=== PATIENT | female | born 1935 | race African-American/Black ===

== ENCOUNTER 2019-03-01 20:36 | Emergency (ER) | payer OTHER, BC ==
[2019-03-01 20:53] VITALS: BMI 10.3
--- NOTE | 2019-03-01 21:47 | PDOC ---
*Physical Exam - Vital Signs Last Vital Signs Temp Pulse Resp BP Pulse Ox 97.9 F 59 L 16 169/74 99 03/01/19 20:50 03/01/19 20:50 03/01/19 20:50 03/01/19 20:50 03/01/19 20:50 - Physical Exam Comments: 03/01/19 21:45 ED Treatment Course - RADIOLOGY Radiology Studies Ordered: Category Date Time Status CERVICAL SPINE CT W/O CONTR [CT] Stat CT Scan 03/01/19 21:[address] WITHOUT CONTRAST [CT] Stat CT Scan 03/01/19 21:[address] WITHOUT CONTRAST [CT] Stat CT Scan 03/01/19 21:39 Ordered Discharge - Follow up/Referral Referrals: Manolo Ulloa [Primary Care Provider] - - Patient Discharge Instructions - Post Discharge Activity
--- NOTE | 2019-03-01 21:55 | PDOC ---
Documentation entered by Ray Borden SCRIBE, acting as scribe for Ghazala Ceja DO. Ghazala Ceja DO: This documentation has been prepared by the Michi zuniga Daniel, SCRIBE, under my direction and personally reviewed by me in its entirety. I confirm that the documentation accurately reflects all work, treatment, procedures, and medical decision making performed by me. Attending Attestation - Resident Resident Name: Huber Hairston - ED Attending Attestation I have performed the following: I have examined & evaluated the patient, The case was reviewed & discussed with the resident, I agree w/resident's findings & plan, Exceptions are as noted - HPI HPI: 03/01/19 21:31 The patient is an 83 year old diabetes with a past medical history of diabetes here today for evaluation of chest and back pain s/p fall. The patient reports that she was walking into her kitchen when she tripped over a shirt and fell. She is not sure which way she fell but states that she hit her head and denies any loss of consciousness. She states that she was unable to get up and had to call her neighbor to help her. She states that since the fall she has had 8/10 substernal chest pain that is worse with deep breaths and 8/10 thoracic back pain. Patient denies headache, lightheadedness. Denies fever, chills. Denies shortness of breath. Denies nausea, vomiting, diarrhea, abdominal pain. Denies neurologic symptoms. Allergies: NKA Social history: Denies tobacco, alcohol, and illicit drug use. PCP: Tomas Flynn - Physicial Exam PE: 03/01/19 21:45 Constitutional: Awake, alert, oriented. No acute distress. No external signs of trauma. Head: Normocephalic. Atraumatic Eyes: PERRL. EOMI. Conjunctivae are not pale. ENT: Mucous membranes are moist and intact. Posterior pharynx without exudates or erythema. Uvula midline. Neck: Supple. Full ROM. No lymphadenopathy. Cardiovascular: Regular rate. Regular rhythm. S1, S2 regular. Distal pulses are 2+ and symmetric. Pulmonary/Chest: +distal sternal tenderness. +lower anterior chest wall tenderness. No evidence of respiratory distress. Clear to auscultation bilaterally No wheezing, rales or rhonchi. Abdominal: Soft and non-distended. There is no tenderness. No rebound, guarding or rigidity. No organomegaly. No palpable masses. Good bowel sounds. Back: +thoracic spinal tenderness with no step offs or deformity. No CVA tenderness. Musculoskeletal: No edema. No cyanosis. No clubbing. Full range of motion in all extremities. Nocalf tenderness. Radial/pedal pulses are intact and 2+ bilaterally Skin: Skin is warm and dry. No petechiae. No purpura. Neurological: Alert and oriented to person, place, and time. Cranial nerves II -XII are grossly intact. Normal speech. Strength is grossly symmetric. No sensory deficits. Psychiatric: Good eye contact. Normal interaction, affect and behavior. - Medical Decision Making 03/01/19 21:53 I, Dr. Ghazala Ceja, DO, attest that this document has been prepared under my direction and personally reviewed by me in its entirety. I further attest, that it accurately reflects all work, treatment, procedures and medical decision -making performed by me. a/p: 83yo female with mechanical fall tonight -pt with head injury, no loc -pt with lower neck pain and upper back pain and lower sternal ttp -unsure how she fell -will send labs, ct head/c spine/chest -pt denies wanting pain meds at this time -no abd ttp -pelvis stable, FROM of hips and LE -sensation intact UE and LE, muscle strength 5/5 UE and LE -neuro intact -will r/o fx -will monitor and reassess 03/01/19 23:51 labs reviewed and stable pt pending ct findings 03/02/19 00:26 pt without acute hemorrhage or fx on head ct pt without acute c spine fx 03/02/19 00:[address] Findings: Cervical spine demonstrates normal alignment. Degenerative changes noted. No acute cervical spine fracture or dislocation Small thyroid nodules. Moderate left and mild right mastoid effusions. Head CT FINDINGS: There is cerebral atrophy. Chronic microvascular ischemic changes are noted. No acute intracranial hemorrhage or acute infarction. The visualized aspect of the paranasal sinuses and mastoid air cells are remarkable for moderate left mastoid effusion. No acute fracture. Chest CT Findings: Atelectasis, scarring, and mild bronchiectasis in the lungs. No acute lung contusion, pleural effusion, or pneumothorax. No mediastinal hematoma. No acute fracture. 03/02/19 00:33 will give toradol for pain will ambulate 03/02/19 01:47 trop neg pending repeat trop resident to ambulate the patient 03/02/19 02:08 pt was able to ambulate with her cane in the ED 03/02/19 02:09 repeat trop neg 03/02/19 02:11 pt stable for dc to home Heart Score/ECG Review - ECG Intrepretation Comment:: 03/01/19 21:55 sinus adamaris at 50, nl axis, LVH, poor r wave progression, no acute st/t wave findings, abnl ekg
--- NOTE | 2019-03-01 22:00 | PDOC ---
History of Present Illness - General Chief Complaint: Injury Stated Complaint: FALL Time Seen by Provider: 03/01/19 20:46 History Source: Patient Exam Limitations: No Limitations - History of Present Illness Initial Comments: 03/01/19 21:48 This is an 83 year old female with PMH significant for DM (metformin DCed, PCP aware). She presented to the ER with complaints of chest and back pain that began after she tripped over a shirt and fell down in her apartment approximately 2 hours ago. She does not remember which direction she fell in, or how she landed, but she remembers hitting her head and states that it sounded like "a coconut hitting the floor". She did not lose consciousness, and attempts to pull herself up proved futile. She called her friends who live in the same apartment building to help her, and they responded within 10 minutes. The chest pain is substernal, sudden on onset, 8/10 in intensity, constant but gradually decreasing in nature, non-radiating, aggravated by deep breaths and by leaning forward, with no alleviating factors. The back pain is located in the thoracic vertebrae, sudden on onset, 8/10 in intensity, constant but gradually decreasing in nature, non-radiating, with no recognizable aggravating or alleviating factors. She has not taken any medication for the pain, and denies any associated nausea , vomiting, mental status changes, visual changes, numbness or tingling, or fever. Past History - Past Medical History Allergies/Adverse Reactions: Allergies Allergy/AdvReac Type Severity Reaction Status Date / Time No Known Allergies Allergy Verified 03/01/19 20:45 Home Medications: Ambulatory Orders Brinzolamide [Azopt] 15 ml OP DAILY 03/01/19 - Psycho Social/Smoking Cessation Hx Smoking History: Never smoked Have you smoked in the past 12 months: No Information on smoking cessation initiated: No Hx Alcohol Use: No Drug/Substance Use Hx: No Review of Systems - Review of Systems Constitutional: No: Symptoms Reported, See HPI, Chills, Diaphoresis, Fever, Loss of Appetite, Malaise, Night Sweats, Weakness, Weight Stable, Unintentional Wgt. Loss, Unexplained wgt Loss, Other HEENTM: No: Symptoms Reported, See HPI, Eye Pain, Blurred Vision, Tearing, Recent change in vision, Double Vision, Cataracts, Ear Pain, Ocular Prothesis, Ear Discharge, Nose Pain, Nose Congestion, Tinnitus, Nose Bleeding, Hearing Loss , Throat Pain, Throat Swelling, Mouth Pain, Dental Problems, Difficulty Swallowing, Mouth Swelling, Other Respiratory: No: Symptoms reported, See HPI, Cough, Orthopnea, Shortness of Breath, SOB with Exertion, SOB at Rest, Stridor, Wheezing, Productive cough, Hemoptysis, Other Cardiac (ROS): Yes: Chest Pain. No: Symptoms Reported, See HPI, Edema, Irregular Heart Rate, Lightheadedness, Palpitations, Syncope, Chest Tightness, Other ABD/GI: No: Symptoms Reported, See HPI, Abdominal Distended, Abd. Pain w/ defecation, Blood Streaked Bowels, Constipated, Diarrhea, Difficulty Swallowing , Nausea, Poor Appetite, Poor Fluid Intake, Rectal Bleeding, Vomiting, Indigestion, Abdominal cramping, Tarry Stools, Other : No: Symptoms Reported, See HPI, Burning, Dysuria, Discharge, Frequency, Flank Pain, Hematuria, Incontinence, Pain, Urgency, Testicular Mass, Testicular Swelling, Lesions, Testicular Pain, Other Musculoskeletal: Yes: Back Pain. No: Symptoms Reported, See HPI, Gout, Joint Pain, Joint Swelling, Muscle Pain, Muscle Weakness, Neck Pain, Joint Stiffness, Other Integumentary: No: Symptoms Reported, See HPI, Bruising, Change in Color, Change in Hair/Nails, Dryness, Erythema, Flushing, Lesions, Lumps, Pallor, Pruritus, Rash, Sweating, Other Neurological: No: Symptoms reported, See HPI, Headache, Numbness, Paresthesia, Pre-Existing Deficit, Seizure, Tingling, Tremors, Weakness, Unsteady Gait, Ataxia, Dizziness, Other Psychiatric: No: Anxiety, Depression, Frequent Crying, Stressors, Sleep Pattern Change, Emotional Problems, Mood Swings, Change in Appetite, Other Endocrine: No: Symptoms Reported, See HPI, Excessive Sweating, Flushing, Intolerance to Cold, Intolerance to Heat, Increased Hunger, Increased Thirst, Increased Urine, Unexplained Weight Gain, Unexplained Weight Loss, Change in Weight, Other Hematologic/Lymphatic: No: Symptoms Reported, See HPI, Anemia, Blood Clots, Easy Bleeding, Easy Bruising, Bleeding Diathesis, Lymph Node Abnormalities, Swollen Glands, Other *Physical Exam - Vital Signs Last Vital Signs Temp Pulse Resp BP Pulse Ox 97.9 F 59 L 16 169/74 99 03/01/19 20:50 03/01/19 20:50 03/01/19 20:50 03/01/19 20:50 03/01/19 20:50 - Physical Exam General Appearance: Yes: Appropriately Dressed HEENT: positive: Normal ENT Inspection, Normal Voice, Symmetrical, TMs Normal, Pharynx Normal Neck: positive: Trachea midline Respiratory/Chest: positive: Lungs Clear, Normal Breath Sounds Cardiovascular: positive: Regular Rhythm, Regular Rate Heart Score/ECG Review - Electrocardiogram EKG: Normal - Age Age: >/= 65 - Risk Factors Risk Factors Heart Score: Yes Hx Diabetes - ECG Intrepretation Rhythm: Regular Rhythm ED Treatment Course - LABORATORY CBC & Chemistry Diagram: 03/01/19 22:22 03/01/19 22:22 - RADIOLOGY Radiology Studies Ordered: Category Date Time Status CERVICAL SPINE CT W/O CONTR [CT] Stat CT Scan 03/01/19 21:[address] WITHOUT CONTRAST [CT] Stat CT Scan 03/01/19 21:[address] WITHOUT CONTRAST [CT] Stat CT Scan 03/01/19 21:39 Ordered Medical Decision Making - Medical Decision Making 03/01/19 22:07 - CBC, CMP - UA - EKG - CT Head, C-spine, Chest - Patient refused pain medication 03/02/19 01:07 - Imaging negative 03/02/19 02:07 - Trops negative x2 - Toradol goven for pain 03/02/19 05:17 - Patient discharged Discharge - Discharge Information Problems reviewed: Yes Clinical Impression/Diagnosis: Fall Condition: Guarded - Admission No - Follow up/Referral Referrals: Manolo Ulloa [Primary Care Provider] - - Patient Discharge Instructions Additional Instructions: You presented to the ER with chest and back pain after a fall. We did scans of your head (CT), chest, and back (X Rays), as well as blood work. You also received some medicine for your pain. We did not find any abnormalities requiring urgent treatment, so you are now being discharged. Follow up: Please make an appointment to see your primary care physician within 1 week Medications: You may take Tylenol 650 mg by mouth up to 4 times a day for pain Additional information: Please return to the ER if your symptoms persist or worsen. - Post Discharge Activity
[2019-03-01 22:35] LABS: BASO % 0.5 % (0-2.0); EOS % 0.9 % (0-4.5); HEMATOCRIT 41.3 % (32.4-45.2); HEMOGLOBIN 13.6 GM/dL (10.7-15.3); LYMPH % 21.7 % (8-40); MCH 29.2 pg (25.7-33.7); MEAN CELL VOLUME 88.3 fl (80-96); MONO % 5.8 % (3.8-10.2); NEUT % 71.1 % (42.8-82.8); RBC 4.67 M/mm3 (3.60-5.2); RDW 14.5 % (11.6-15.6); WHITE BLOOD COUNT 7.4 K/mm3 (4.0-10.0)
[2019-03-01 22:37] LABS: PH,URINE 8.5 (5.0-8.0); URINE APPEARANCE CLEAR; URINE BILIRUBIN NEGATIVE (NEGATIVE); URINE COLOR YELLOW; URINE GLUCOSE (UA) NEGATIVE (NEGATIVE); URINE KETONE NEGATIVE (NEGATIVE); URINE LEUK ESTERASE NEGATIVE (NEGATIVE); URINE NITRITE NEGATIVE (NEGATIVE); URINE PROTEIN NEGATIVE (NEGATIVE); URINE UROBILINOGEN 0.2 mg/dL (0.2-1.0)
[2019-03-01 23:07] LABS: ALBUMIN 4.2 g/dl (3.4-5.0); ALK PHOS 111 U/L (45-117); BILIRUBIN,TOTAL 0.5 mg/dL (0.2-1); BLOOD UREA NITROGEN 13.2 mg/dL (7-18); CALCIUM 9.2 mg/dL (8.5-10.1); CHLORIDE 104 mmol/L (98-107); CO2 29 mmol/L (21-32); GLUCOSE,RANDOM 106 mg/dL (74-106); MEAN PLT VOLUME 11.2 fl (7.5-11.1); PLATELET COUNT 180 K/MM3 (134-434); SGPT/ALT 29 U/L (13-61); SODIUM 140 mmol/L (136-145); TOT PROT 8.2 g/dl (6.4-8.2)
[2019-03-01 23:08] LABS: ANION GAP 7 MMOL/L (8-16); POTASSIUM 4.2 mmol/L (3.5-5.1); SGOT/AST 36 U/L (15-37)
[2019-03-02] MEDS ORDERED: KETOROLAC TROMETHAMINE 10 MG TABLET PO ONE (00:34)
[2019-03-02] MEDS ORDERED: ACETAMINOPHEN 1000 MG/100 ML VIAL (NON FORMULARY) IVPB ONE (00:38)
[2019-03-02] MEDS ORDERED: ACETAMINOPHEN INJECTION 100 ML IVPB ONE (00:50)
[2019-03-02 08:36] VITALS: BP 126/69; PULSE 52; TEMP 98.7
--- NOTE | 2019-03-02 12:14 | EKG ---
Test Reason : Blood Pressure : / mmHG Vent. Rate : 050 BPM Atrial Rate : 050 BPM P-R Int : 158 ms QRS Dur : 086 ms QT Int : 438 ms P-R-T Axes : 059 020 053 degrees QTc Int : 399 ms SINUS BRADYCARDIA POSSIBLE LEFT ATRIAL ENLARGEMENT LEFT VENTRICULAR HYPERTROPHY NO PREVIOUS ECGS AVAILABLE Confirmed by ALEJANDRO MILTON MD ([id number]) on 03/02/2019 12:14:37 PM Referred By: Confirmed By:ALEJANDRO MILTON MD
== END 2019-03-02 08:36 | disposition home or self-care (01) ==
LOC: JER 20:36
PROC: 3E033NZ Introduction of Analgesics, Hypnotics, Sedatives into Peripheral Vein, Percutaneous Approach (ICD-10-PCS; principal; 2019-03-01)
DX: S09.8XXA Other specified injuries of head, initial encounter (principal); R07.89 Other chest pain; M54.6 Pain in thoracic spine; W18.09XA Striking against other object with subsequent fall, initial encounter; Y93.89 Activity, other specified; Y92.038 Other place in apartment as the place of occurrence of the external cause; Y99.8 Other external cause status; E11.9 Type 2 diabetes mellitus without complications
CPT/HCPCS: 36415; 70450-TC; 71250-TC; 72125-TC; 80053; 81003; 82550; 82553; 84484; 85025; 93005; 93010; 99284-25; J0131

== ENCOUNTER 2019-04-15 23:34 | Inpatient (IN) | payer OTHER, BC ==
--- NOTE | 2019-04-15 23:46 | PDOC ---
History of Present Illness - General Chief Complaint: Injury Stated Complaint: FALL Time Seen by Provider: 04/15/19 23:45 History Source: Patient Exam Limitations: No Limitations - History of Present Illness Initial Comments: 83 year old female with PMH DM, osteoporosis presented to ED for right hip pain s/p fall tonight. Pt reported she believes that her cane did not make traction with the ground, causing her to fall onto her right hip. Pt denied head injury/ vomiting/LOC, neck pain, back pain, abdominal pain, chest pain, shortness of breath, palpitations. She denied prodromal symptoms. Pt reported she took Tylenol right after the fall. PSH: bilateral knee replacement Allergies: ASA ROS General: denied fever, chills, generalized weakness. HEENT: denied sore throat, rhinorrhea, ear pain. Cardiovascular: denied chest pain, palpitations, syncope, diaphoresis. Respiratory: denied shortness of breath, cough, sputum production, hemoptysis. Gastrointestinal: denied abdominal pain, nausea, vomiting, diarrhea, constipation, blood in stool. Genitourinary: denied dysuria, increased urinary frequency, hematuria, urinary incontinence, flank pain. Back: denied back pain. Musculoskeletal: admitted to right hip pain. Neurological: denied headache, dizziness, numbness, tingling, weakness. Integumentary: denied rash, laceration, abrasion. Hematologic/Lymphatic: denied bruising or bleeding. PE Constitutional: Well-nourished, Well-developed, appearing stated age. HEENT: head is normocephalic, atraumatic. EOMI. PERRLA. no scalp hematoma. no racoon eyes. no facial bone tenderness to palpation. Neck: supple. Full ROM. no midline c-spine tenderness to palpation. no step offs. Cardiovascular: regular heart rhythm. no murmurs. no pericardial friction rub. Respiratory: clear to auscultation bilaterally. no crackles, rhonchi or wheezing. no stridor. Gastrointestinal: soft, nontender. normal bowel sounds. no rebound, guarding, masses. Extremities: peripheral pulses intact. RLE externally rotated and shortened. Hips: tenderness to right hip. no tenderness to left hip. Neurological: CN 2-12 grossly intact. moves all four extremities. Psych: awake, alert, oriented x3. follows commands. answers questions appropriately. Past History - Past Medical History Allergies/Adverse Reactions: Allergies Allergy/AdvReac Type Severity Reaction Status Date / Time No Known Allergies Allergy Verified 04/15/19 23:48 Home Medications: Ambulatory Orders Brinzolamide [Azopt] 15 ml OP DAILY 03/01/19 - Psycho Social/Smoking Cessation Hx Smoking History: Never smoked Have you smoked in the past 12 months: No Hx Alcohol Use: No Drug/Substance Use Hx: No ED Treatment Course - LABORATORY CBC & Chemistry Diagram: 04/16/19 05:30 04/16/19 05:30 - RADIOLOGY Radiograph Interpretation: CT head/cervical spine report: Name: PLACIDO VIZCAINO DEPARTMENT OF RADIOLOGY Phys: Liz Grace RESIDENT : 1935 Age: 83 Sex: F [facility] Acct: [id number] Loc: J7 [address] [facility] Exam Date: Status: [place] [address] Unit Number: [id number] EXAM#: TYPE/EXAM: RESULT: [id number] CT/ CERVICAL SPINE CT W/O CONTR [id number] CT/HEAD CT WITHOUT CONTRAST Status post fall. CT scan of the head without intravenous contrast. There is moderate volume loss, ventricular dilatation and periventricular chronic microvascular ischemic disease changes. No mass lesion, gross acute infarct or intracranial hemorrhage are identified. There is no shift of the midline structures. Mild deviation of the nasal septum towards the left. Calcification of the cavernous carotid arteries are present. Cataract sutures in the left orbit. The mastoid air cells are partially opacified, left more the right. The calvarium is intact IMPRESSION: Moderate atrophy and periventricular chronic microvascular ischemic disease changes without CT evidence of acute intracranial pathology A preliminary report was forwarded by the [facility] service, [facility] CT scan of the cervical spine without intravenous contrast Coronal and sagittal reconstruction images were obtained. There is very minimal anterolisthesis of C6 over C7, likely degenerative. Moderate degenerative disc disease at C4-C5 and C6-C7 level Right uncovertebral hypertrophy at C4-C5 level moderately narrowing foramen. No gross fracture, subluxation or prevertebral soft tissue swelling is seen. Visualized portion of the airway appears unremarkable. No gross enlarged lymph nodes are identified. Lung windows at the thoracic inlet appear unremarkable. Notes made of a couple of small hypodense nodules in the right thyroid lobe measuring up to 6 mm. Please correlate with thyroid ultrasound Note is again made of bilateral mastoid effusion, left more than right. IMPRESSION: Very minimal anterolisthesis of C6 over C7, likely degenerative. Otherwise, the alignment is satisfactory without gross evidence of a fracture or subluxation. No jumped facets are identified. Right uncovertebral hypertrophy moderately narrowing the foramen at C4-C5 level. A preliminary report was forwarded by the [facility] service, [facility] Reported By: Jose Vazquez MD 04/16/19 1101 CXR report: Name: PLACIDO VIZCAINO DEPARTMENT OF RADIOLOGY Phys: Liz Grace RESIDENT : 1935 Age: 83 Sex: F [facility] Acct: [id number] Loc: [address] Exam Date: 04/16/19 Status: [place] [address] Unit Number: [id number] EXAM#: TYPE/EXAM: RESULT: [id number] RAD/CHEST - PA Chest: Fall Single AP view of the chest reveals a large heart, and folded aorta, scoliosis with convexity to the left, slightly coarse lung changes but no sign of infiltrate failure or pneumothorax. The angles are sharp. The soft tissues are intact. There are no gross rib fractures. Since 08/11/2006 there is a more prominent mediastinum increased lung markings. Correlation recommended. Reported By: Patel Suarez MD 04/16/19 0633 R Knee XR report: Name: PLACIDO VIZCAINO DEPARTMENT OF RADIOLOGY Phys: Liz Grace RESIDENT : 1935 Age: 83 Sex: F [facility] Acct : [id number] Loc: [address] Exam Date: 04/16/19 Status: [place] [address] Unit Number: [id number] EXAM#: TYPE/EXAM: RESULT: [id number] RAD/KNEE 2 POS-RIGHT Right knee : Fall. Pain. 2 views of the right knee reveal an intact knee replacement with no sign of loosening, fracture or subluxation. Other imaging does show a proximal right femoral intertrochanteric fracture with varus deformity. Correlation recommended. Reported By: Patel Suarez MD 04/16/19702 R Femur XR report: Name: PLACIDO VIZCAINO DEPARTMENT OF RADIOLOGY Phys: OlgaLiz RESIDENT : 1935 Age: 83 Sex: F [facility] Acct: [id number] Loc: [address] Exam Date: 04/16/19 Status: [place] [address] Unit Number: [id number] ACCESSION # : [id number] EXAM#: TYPE/EXAM: RESULT: [id number] RAD/FEMUR-RIGHT Right femur: Fall. Pain. 4 views of the right femur reveal an acute right femoral intertrochanteric fracture with varus deformity. The femoral head is not dislocated. There is an intact right knee replacement. Correlation recommended. Reported By: Patel Suarez MD 04/16/19702 R hip/pelvis XR report: Name: PLACIDO VIZCAINO DEPARTMENT OF RADIOLOGY Phys: Liz Grace RESIDENT : 1935 Age: 83 Sex: F [facility] Acct: [id number] Loc: [address] Exam Date: 04/16/19 Status: [place] [address] Unit Number: [id number] ACCESSION # : [id number] EXAM#: TYPE/EXAM: RESULT: [id number] RAD/HIP PELVIS-RIGHT Right hip and pelvis: Fall. Pain. The true pelvis film has not been submitted. Images of the right femur and hip reveal an acute right femoral intertrochanteric fracture with varus deformity and no sign of the femoral head dislocation. A knee replacement is noted and this is intact. Correlation recommended. Reported By: Patel Suarez MD 04/16/19 0704 Medical Decision Making - Medical Decision Making 83 year old male with above PMH presented to ED for right hip pain s/p fall from standing today. Ortho: [facility] ([facility]) Initial Vital Signs Temp Pulse Resp BP Pulse Ox 97.4 F L 54 L 18 145/98 100 04/15/19 23:35 04/15/19 23:35 04/15/19 23:35 04/15/19 23:35 04/15/19 23:35 Afebrile. Bradycardia. No tachypnea. Mild hypertension. No hypoxia on room air. Labs ordered: CBC, CMP, PT/PTT/INR, UA/UC, T&S Imaging ordered: CT head noncontrast, CT cervical spine noncontrast Medications ordered: Morphine 2 mg IV once, Zofran 4 mg IV once, normal saline bolus 1000 cc once EKG performed at 2349: rate 68, regular rhythm, normal axis, normal intervals, nonspecific ST changes. 04/16/19 02:06 XR shows intertrochanteric fracture. Bucio ordered. CBC WBC 10.5 K/mm3 (4.0-10.0) H 04/16/19 00:55 RBC 4.59 M/mm3 (3.60-5.2) 04/16/19 00:55 Hgb 13.4 GM/dL (10.7-15.3) 04/16/19 00:55 Hct 40.8 % (32.4-45.2) 04/16/19 00:55 MCV 88.9 fl (80-96) 04/16/19 00:55 MCH 29.3 pg (25.7-33.7) 04/16/19 00:55 MCHC 32.9 g/dl (32.0-36.0) 04/16/19 00:55 RDW 14.9 % (11.6-15.6) 04/16/19 00:55 Plt Count 208 K/MM3 (134-434) 04/16/19 00:55 MPV 11.5 fl (7.5-11.1) H 04/16/19 00:55 Absolute Neuts (auto) 8.7 K/mm3 (1.5-8.0) H 04/16/19 00:55 Neutrophils % 83.0 % (42.8-82.8) H 04/16/19 00:55 Lymphocytes % 12.9 % (8-40) D 04/16/19 00:55 Monocytes % 3.5 % (3.8-10.2) L 04/16/19 00:55 Eosinophils % 0.3 % (0-4.5) 04/16/19 00:55 Basophils % 0.3 % (0-2.0) 04/16/19 00:55 Nucleated RBC % 0 % (0-0) 04/16/19 00:55 CMP Sodium 139 mmol/L (136-145) 04/16/19 00:55 Potassium 4.1 mmol/L (3.5-5.1) 04/16/19 00:55 Chloride 107 mmol/L (98-107) 04/16/19 00:55 Carbon Dioxide 25 mmol/L (21-32) 04/16/19 00:55 Anion Gap 7 MMOL/L (8-16) L 04/16/19 00:55 BUN 17.7 mg/dL (7-18) 04/16/19 00:55 Creatinine 1.1 mg/dL (0.55-1.3) 04/16/19 00:55 Est GFR (CKD-EPI)AfAm 53.39 04/16/19 00:55 Est GFR (CKD-EPI)NonAf 46.07 04/16/19 00:55 Random Glucose 124 mg/dL (74-106) H 04/16/19 00:55 Calcium 9.1 mg/dL (8.5-10.1) 04/16/19 00:55 Magnesium 2.3 mg/dL (1.8-2.4) 04/16/19 00:55 Total Bilirubin 0.5 mg/dL (0.2-1) 04/16/19 00:55 AST 28 U/L (15-37) 04/16/19 00:55 ALT 21 U/L (13-61) 04/16/19 00:55 Alkaline Phosphatase 119 U/L (45-117) H 04/16/19 00:55 Total Protein 8.4 g/dl (6.4-8.2) H 04/16/19 00:55 Albumin 4.2 g/dl (3.4-5.0) 04/16/19 00:55 INR, PTT INR 1.05 (0.83-1.09) 04/16/19 00:55 Pt to be admitted. Ortho consult placed. No emergent need to call right now, ortho can be called in the AM. 04/16/19 04:27 CT head report: Referring Physician: OLGA LARES Patient Name: PLACIDO VIZCAINO THIS IS A PRELIMINARY REPORT FROM [facility] DATE OF SERVICE: 2019-04-16 02:22:29 IMAGES: [id number] EXAM: HEAD CT WITHOUT CONTRAST HISTORY: Fall. COMPARISON: Report only of CT head of 03/01/2019. Images not provided. FINDINGS: Age-related intracranial volume loss. No midline shift. Chronic micro angiopathic ischemic changes in the white matter. No acute intracranial hemorrhage or infarction. No abnormal acute extra-axial fluid collections. Intracranial atherosclerosis. Bilateral lens implants. Intact osseous calvarium. Fluid in bilateral mastoids, left greater than right. Clear middle ear cavities. Mild mucosal thickening in left maxillary sinus. IMPRESSION: No acute traumatic intracranial or osseous abnormality. Other findings as above. One or more of the following dose reduction techniques were used: automated exposure control, adjustment of the mA and/or kV according to patient size, use of iterative reconstructive technique. THIS DOCUMENT HAS BEEN ELECTRONICALLY SIGNED Harman Wilder MD 04/16/2019 04:[address] cervical spine report: Referring Physician: OLGA LARES Patient Name: PLACIDO VIZCAINO THIS IS A PRELIMINARY REPORT FROM [facility] DATE OF SERVICE: 2019-04-16 02:18:59 IMAGES: [id number] EXAM: CERVICAL SPINE CT W/O CONTR HISTORY: Fall. COMPARISON: Report only of CT cervical spine of 03/01/2019. FINDINGS: Fluid in bilateral mastoids, left greater than right. Clear middle ear cavities. Slight anterolisthesis of C6 over C7. No definite acute fractures or dislocations. Multilevel degenerative changes. Evaluation of intraspinal contents limited on CT scan. Prevertebral soft tissues within normal limits. Patent airway. Hypodense nodules in both lobes of the thyroid gland with calcifications noted in the right lobe. Clear lung apices. IMPRESSION: No acute traumatic osseous abnormality. Other findings as noted above. One or more of the following dose reduction techniques were used: automated exposure control, adjustment of the mA and/or kV according to patient size, use of iterative reconstructive technique. THIS DOCUMENT HAS BEEN ELECTRONICALLY SIGNED Harman Wilder MD 04/16/2019 04:18 EST 04/16/19 07:07 Dr. Lobato aware. Discharge - Discharge Information Problems reviewed: Yes Clinical Impression/Diagnosis: Hip fracture Condition: Stable - Admission Yes - Follow up/Referral - Patient Discharge Instructions - Post Discharge Activity
[2019-04-15] MEDS ORDERED: ACETAMINOPHEN 1000 MG/100 ML VIAL (NON FORMULARY) IVPB ONE (23:56)
[2019-04-16] MEDS ORDERED: ONDANSETRON 4 MG/2 ML VIAL IVPUSH ONE (00:09)
[2019-04-16] MEDS ORDERED: morphine CARPU-JECT 4 MG/1 ML DISP.SYRIN IVPUSH ONE (00:09)
[2019-04-16] MEDS ORDERED: SODIUM CHLORIDE 1,000 ML IV STA (00:13)
[2019-04-16] MEDS ORDERED: MORPHINE SULFATE 2 MG/ML VIAL ONE ×2 (00:24→04:06)
[2019-04-16] MEDS ORDERED: ONDANSETRON 4 MG/2 ML VIAL ONE (00:24)
--- NOTE | 2019-04-16 00:29 | PDOC ---
Documentation entered by Jocelyn Quezada SCRIBE, acting as scribe for Jacques Jeronimo MD. Jacques Jeronimo MD: This documentation has been prepared by the annieibeDamien Lincy, SCRIBE, under my direction and personally reviewed by me in its entirety. I confirm that the documentation accurately reflects all work, treatment, procedures, and medical decision making performed by me. Attending Attestation - Resident Resident Name: LeslyLiz - ED Attending Attestation I have performed the following: I have examined & evaluated the patient, The case was reviewed & discussed with the resident, I agree w/resident's findings & plan, Exceptions are as noted - HPI HPI: 04/16/19 06:26 83 years old with diabetes osteoporosis presents with right hip pain status post fall pain is moderate persistent constant no alleviating factors - Physicial Exam PE: 04/16/19 06:26 Vitals: Triage Vital signs reviewed General Appearance: No acute distress, well nourished well developed, Cardiac: Regular rate and rhythym, no murmurs, no rubs, no gallops, Lungs: Clear to auscultation bilateral, good air movement bilaterally, Abdomen: Soft, non distended, normal bowel sounds, non tender to palpation Extremities right hip rotated and shortened neurovascular intact distally skin: Warm and dry, no rashes or lesions, no rash, no petechiae Psych: Normal mood, normal affect - Medical Decision Making 04/16/19 06:27 Right intercurrent trochanteric hip fracture will call orthopedics Will admit to medicine for further management. Dr. Lobato orthopedics aware 04/16/19 07:28
[2019-04-16 01:14] LABS: BASO % 0.3 % (0-2.0); EOS % 0.3 % (0-4.5); HEMATOCRIT 40.8 % (32.4-45.2); HEMOGLOBIN 13.4 GM/dL (10.7-15.3); LYMPH % 12.9 % (8-40); MCH 29.3 pg (25.7-33.7); MCHC 32.9 g/dl (32.0-36.0); MEAN CELL VOLUME 88.9 fl (80-96); MEAN PLT VOLUME 11.5 fl (7.5-11.1); MONO % 3.5 % (3.8-10.2); PLATELET COUNT 208 K/MM3 (134-434); RBC 4.59 M/mm3 (3.60-5.2); RDW 14.9 % (11.6-15.6); WHITE BLOOD COUNT 10.5 K/mm3 (4.0-10.0)
[2019-04-16 01:36] LABS: INR 1.05 (0.83-1.09); PROTHROMBIN TIME (PATIENT) 12.4 SEC (9.7-13.0)
[2019-04-16 01:47] LABS: ALBUMIN 4.2 g/dl (3.4-5.0); BILIRUBIN,TOTAL 0.5 mg/dL (0.2-1); BLOOD UREA NITROGEN 17.7 mg/dL (7-18); CALCIUM 9.1 mg/dL (8.5-10.1); CREATININE 1.1 mg/dL (0.55-1.3); MAGNESIUM 2.3 mg/dL (1.8-2.4); POTASSIUM 4.1 mmol/L (3.5-5.1); TOT PROT 8.4 g/dl (6.4-8.2)
--- NOTE | 2019-04-16 02:36 | PN ---
Teaching Attending Note Name of Resident: Davida Alvarez ATTENDING PHYSICIAN STATEMENT I saw and evaluated the patient. I reviewed the resident's note and discussed the case with the resident. I agree with the resident's findings and plan as documented. SUBJECTIVE: 83-year-old woman with diabetes, osteoporosis presented status post fall last evening and subsequent right hip pain. Patient denied any head trauma, LOC, neck pain. X-ray performed of right hip and showed intratrochanteric fracture. OBJECTIVE: Last Vital Signs Temp Pulse Resp BP Pulse Ox 97.4 F L 54 L 18 145/98 100 04/15/19 23:35 04/15/19 23:35 04/15/19 23:35 04/15/19 23:35 04/15/19 23:35 GENERAL: Elderly, frail, not in acute distress HEENT: Normocephalic, atraumatic. PERRLA, EOMI. No conjunctival pallor. Sclera are non- icteric. Moist mucous membranes. Oropharynx is clear. NECK: Supple. Full ROM. No JVD. Carotid pulses 2+ and symmetric, without bruits. No thyromegaly. No lymphadenopathy. CARDIOVASCULAR: Regular rate and rhythm. No murmurs, rubs, or gallops. Distal pulses are 2+ and symmetric. PULMONARY: No evidence of respiratory distress. Lungs clear to auscultation bilaterally. No wheezing, rales or rhonchi. ABDOMINAL: Soft. Non-tender. Non-distended. No rebound or guarding. No organomegaly. Normoactive bowel sounds. MUSCULOSKELETAL Normal range of motion at all joints. No bony deformities or tenderness. No CVA tenderness. EXTREMITIES: DP pulses 2+ bilaterally feet and legs are warm to touch bilaterally sensation is intact SKIN: Warm and dry. Normal capillary refill. No rashes. No jaundice. PSYCHIATRIC: Cooperative. Good eye contact. Appropriate mood and affect. Abnormal Lab Results 04/16/19 04/16/19 00:55 00:55 WBC 10.5 H MPV 11.5 H Absolute Neuts (auto) 8.7 H Neutrophils % 83.0 H Monocytes % 3.5 L Anion Gap 7 L Random Glucose 124 H Alkaline Phosphatase 119 H Total Protein 8.4 H Imaging reviewed ASSESSMENT AND PLAN: 83-year-old woman with right intertrochanteric fracture status post fall. Appears to be vascularly and neurologically intact in right lower extremity Admit to [facility] N.p.o. Bedrest Fall precautions Right lower extremity immobilization Ortho consult Pain control with morphine IV Perioperative IV fluids PT, PTT, type and screen DVT prophylaxis with Heparin subcutaneously #Mild leukocytosisno evidence of infection at this time We will monitor CBC off of antibiotics
--- NOTE | 2019-04-16 03:33 | HP ---
CHIEF COMPLAINT: fall with inability to ambulate PCP:Dr Ulloa HISTORY OF PRESENT ILLNESS: 83 year old female with PMHx of DM, glaucoma, osteoporosis, and bilateral knee replacement in 2013, presenting to the ED due to a fall that occurred a few hours ago. Patient states she was walking outside to get to her sons car around 21:00 when her cane slipped off the surface, causing her to land on her right hip. Since then, she has been unable to ambulate. Patient denies hitting her head or any LOC. She reports right hip pain since then but denies any weakness or numbness, headache, chest pain, shortness of breath, dizziness, vertigo, or other problems at this time. She had a similar episode of a fall one month ago, on 03/01/19, where she slipped on a shirt and fell inside her home; patient states she came to the ED at the time, and had a negative CT head , and other imaging negative for fractures. Patient currently lives by herself, and uses a cane to ambulate around the house. Patient states she does not take her prescribed vitamin D or calcium tablets as they are hard to swallow. She does not take any steroids. Patient states she did have a DEXA scan a few years ago, but is unable to recall exactly when. ER course was notable for: (1) CBC with mild leukocytosis, CMP unremarkable, PT/INR/PTT 12.4/1.05/34.8 (2) EKG NSR with non specific ST changes (3) XRay of hip : intertrochanteric fracture Recent Travel: denies PAST MEDICAL HISTORY: as above PAST SURGICAL HISTORY: as above Family HX: none contributory Social History: Smoking:denies Alcohol: denies Drugs: denies Allergies No Known Allergies Allergy (Verified 04/15/19 23:48) HOME MEDICATIONS: Home Medications Medication Instructions Recorded Brinzolamide [Azopt] 15 ml OP DAILY 03/01/19 REVIEW OF SYSTEMS CONSTITUTIONAL: Absent: fever, chills, diaphoresis, generalized weakness, malaise, loss of appetite, weight change HEENT: Absent: rhinorrhea, nasal congestion, throat pain, throat swelling, difficulty swallowing, mouth swelling, ear pain, eye pain, visual changes CARDIOVASCULAR: Absent: chest pain, syncope, palpitations, irregular heart rate, lightheadedness , peripheral edema RESPIRATORY: Absent: cough, shortness of breath, dyspnea with exertion, orthopnea, wheezing, stridor, hemoptysis GASTROINTESTINAL: Absent: abdominal pain, abdominal distension, nausea, vomiting, diarrhea, constipation, melena, hematochezia GENITOURINARY: Absent: dysuria, frequency, urgency, hesitancy, hematuria, flank pain, genital pain MUSCULOSKELETAL: Absent: myalgia, arthralgia, joint swelling, back pain, neck pain SKIN: Absent: rash, itching, pallor HEMATOLOGIC/IMMUNOLOGIC: Absent: easy bleeding, easy bruising, lymphadenopathy, frequent infections ENDOCRINE: Absent: unexplained weight gain, unexplained weight loss, heat intolerance, cold intolerance NEUROLOGIC: Absent: headache, focal weakness or paresthesias, dizziness, unsteady gait, seizure, mental status changes, bladder or bowel incontinence PSYCHIATRIC: Absent: anxiety, depression, suicidal or homicidal ideation, hallucinations. PHYSICAL EXAMINATION Vital Signs - 24 hr 04/15/19 23:35 Temperature 97.4 F L Pulse Rate 54 L Respiratory 18 Rate Blood Pressure 145/98 O2 Sat by Pulse 100 Oximetry (%) GENERAL: Awake, alert, and fully oriented, in mild distress (pt recently received morphine) HEAD: Normal with no signs of trauma. EYES: Pupils equal, round and reactive to light, extraocular movements intact, sclera anicteric, conjunctiva clear. No lid lag. EARS, NOSE, THROAT: Ears normal, nares patent, oropharynx clear without exudates. Moist mucous membranes. NECK: Normal range of motion, supple without lymphadenopathy, JVD, or masses. LUNGS: Breath sounds equal, clear to auscultation bilaterally. No wheezes, and no crackles. No accessory muscle use. HEART: Regular rate and rhythm, normal S1 and S2 without murmur, rub or gallop. ABDOMEN: Soft, nontender, not distended, normoactive bowel sounds, no guarding, no rebound, no masses. No hepatomegaly or splenomegaly. MUSCULOSKELETAL: Normal range of motion in all joints except the right hip and the right knee. R hip tenderness ( prior to morphine). R leg shortened and externally rotated. UPPER EXTREMITIES: 2+ pulses, warm, well-perfused. No cyanosis. No clubbing. No peripheral edema. LOWER EXTREMITIES: 2+ pulses, warm, well-perfused. No calf tenderness. No peripheral edema. NEUROLOGICAL: Cranial nerves II-XII intact. Normal speech. Normal gait. PSYCHIATRIC: Cooperative. Good eye contact. Appropriate mood and affect. SKIN: Warm, dry, normal turgor, no rashes or lesions noted, normal capillary refill. Laboratory Results - last 24 hr 04/16/19 04/16/19 04/16/19 00:55 00:55 00:55 WBC 10.5 H RBC 4.59 Hgb 13.4 Hct 40.8 MCV 88.9 MCH 29.3 MCHC 32.9 RDW 14.9 Plt Count 208 MPV 11.5 H Absolute Neuts (auto) 8.7 H Neutrophils % 83.0 H Lymphocytes % 12.9 D Monocytes % 3.5 L Eosinophils % 0.3 Basophils % 0.3 Nucleated RBC % 0 PT with INR INR PTT (Actin FS) 34.8 Sodium 139 Potassium 4.1 Chloride 107 Carbon Dioxide 25 Anion Gap 7 L BUN 17.7 Creatinine 1.1 Est GFR (CKD-EPI)AfAm 53.39 Est GFR (CKD-EPI)NonAf 46.07 Random Glucose 124 H Calcium 9.1 Magnesium 2.3 Total Bilirubin 0.5 AST 28 ALT 21 Alkaline Phosphatase 119 H Total Protein 8.4 H Albumin 4.2 Blood Type Antibody Screen 04/16/19 04/16/19 04/16/19 00:55 00:55 00:55 WBC RBC Hgb Hct MCV MCH MCHC RDW Plt Count MPV Absolute Neuts (auto) Neutrophils % Lymphocytes % Monocytes % Eosinophils % Basophils % Nucleated RBC % PT with INR 12.40 INR 1.05 PTT (Actin FS) Sodium Potassium Chloride Carbon Dioxide Anion Gap BUN Creatinine Est GFR (CKD-EPI)AfAm Est GFR (CKD-EPI)NonAf Random Glucose Calcium Magnesium Total Bilirubin AST ALT Alkaline Phosphatase Total Protein Albumin Blood Type O POSITIVE O POSITIVE Antibody Screen Negative ASSESSMENT/PLAN: 83 year old female with PMHx of DM, glaucoma, osteoporosis, and bilateral knee replacement in 2013, presenting to the ED due to a fall that occurred a few hours ago. Admitted for fracture of the right hip Right hip fracture 2/2 fall and osteoporosis PE findings of shortened and externally rotated R leg Xray of the hip confirmed intertrochanteric fracture Ortho Dr Lobato consulted for surgery and fixation NPO bedrest fall precautions Morphine IV 2mg Q4h and tylenol 650 Q6h for pain control pre op labs ordered LOPES score 0.03% RCRI score 0 Mild Leukocytosis poss related to stress from fracture no abx for now as pt is asymptomatic monitor for now f/u repeat CBC Osteoporosis vit D and calcium once able to take PO DM BGM ISS Glaucoma resume eye drops FEN NPO NS @75 monitor lytes DVT hep subQ DISPO- med surge Visit type - Emergency Visit Emergency Visit: Yes ED Registration Date: 04/16/19 Care time: The patient presented to the Emergency Department on the above date and was hospitalized for further evaluation of their emergent condition. - New Patient This patient is new to me today: No - Critical Care Critical Care patient: No ATTENDING PHYSICIAN STATEMENT I saw and evaluated the patient. I reviewed the resident's note and discussed the case with the resident. I agree with the resident's findings and plan as documented. SUBJECTIVE: OBJECTIVE: ASSESSMENT AND PLAN:
[2019-04-16] MEDS ORDERED: ACETAMINOPHEN 325 MG TABLET (FP) PO PRN ×2 (03:45→18:58)
[2019-04-16] MEDS ORDERED: morphine CARPU-JECT 2 MG/1 ML DISP.SYRIN IVPUSH PRN (03:54)
[2019-04-16] MEDS: SODIUM CHLORIDE 1,000 ML IV SCH ×2 (03:57→15:33)
[2019-04-16 05:06] LABS: PH,URINE 7.5 (5.0-8.0); URINE APPEARANCE CLEAR; URINE BILIRUBIN NEGATIVE (NEGATIVE); URINE COLOR YELLOW; URINE GLUCOSE (UA) NEGATIVE (NEGATIVE); URINE KETONE 2+ (NEGATIVE); URINE LEUK ESTERASE NEGATIVE (NEGATIVE); URINE NITRITE NEGATIVE (NEGATIVE); URINE PROTEIN NEGATIVE (NEGATIVE)
[2019-04-16] MEDS ORDERED: MORPHINE SULFATE 2 MG/ML VIAL IVPUSH PRN (05:18)
[2019-04-16] MEDS ORDERED: HEPARIN NA (PORCINE) 5,000 UNITS/ML 1ML VIAL SQ SCH (06:00)
[2019-04-16 06:04] LABS: BASO % 0.9 % (0-2.0); EOS % 0.1 % (0-4.5); HEMATOCRIT 34.7 % (32.4-45.2); HEMOGLOBIN 11.7 GM/dL (10.7-15.3); LYMPH % 15.8 % (8-40); MCH 29.6 pg (25.7-33.7); MCHC 33.7 g/dl (32.0-36.0); MEAN CELL VOLUME 87.7 fl (80-96); MEAN PLT VOLUME 10.5 fl (7.5-11.1); MONO % 5.4 % (3.8-10.2); NEUT % 77.8 % (42.8-82.8); PLATELET COUNT 182 K/MM3 (134-434); RBC 3.96 M/mm3 (3.60-5.2); RDW 14.6 % (11.6-15.6); WHITE BLOOD COUNT 9.9 K/mm3 (4.0-10.0)
[2019-04-16 06:19] LABS: INR 1.1 (0.83-1.09)
[2019-04-16 06:22] LABS: ACTIVATED PTT 33.6 SECONDS (25.2-36.5)
[2019-04-16 06:30] LABS: ALBUMIN 3.4 g/dl (3.4-5.0); BILIRUBIN,TOTAL 0.5 mg/dL (0.2-1); BLOOD UREA NITROGEN 16.1 mg/dL (7-18); CALCIUM 8.6 mg/dL (8.5-10.1); CREATININE 0.9 mg/dL (0.55-1.3); MAGNESIUM 2.1 mg/dL (1.8-2.4); PHOSPHOROUS 3.6 mg/dL (2.5-4.9); POTASSIUM 3.5 mmol/L (3.5-5.1)
[2019-04-16] MEDS ORDERED: HEPARIN NA (PORCINE) 5,000 UNITS/ML 1ML VIAL ONE (06:35)
--- NOTE | 2019-04-16 09:05 | PN ---
Progress Note (short form) - Note Progress Note: Chart reviewed. Plan OR this afternoon. Full consult to follow.
--- NOTE | 2019-04-16 10:01 | EKG ---
Test Reason : Blood Pressure : / mmHG Vent. Rate : 068 BPM Atrial Rate : 068 BPM P-R Int : 152 ms QRS Dur : 070 ms QT Int : 398 ms P-R-T Axes : 060 020 054 degrees QTc Int : 423 ms NORMAL SINUS RHYTHM POSSIBLE LEFT ATRIAL ENLARGEMENT LEFT VENTRICULAR HYPERTROPHY ABNORMAL ECG WHEN COMPARED WITH ECG OF 01-MAR-2019 20:57, T WAVE VARIATION Confirmed by CELIA MURRY MD ([id number]) on 04/16/2019 10:01:32 AM Referred By: Confirmed By:CELIA MURRY MD
[2019-04-16] MEDS ORDERED: ONDANSETRON 4 MG/2 ML VIAL IVPUSH PRN ×2 (16:29→20:37)
[2019-04-16 16:30] VITALS: BMI 26.8
[2019-04-16] MEDS ORDERED: LACTATED RINGERS SOLUTION 1,000 ML IV SCH (16:30)
[2019-04-16] MEDS ORDERED: PROPOFOL 20 ML ONE ×2 (17:12)
[2019-04-16] MEDS ORDERED: ceFAZolin SODIUM 1 GM VIAL IVPB ONE (17:30)
--- NOTE | 2019-04-16 18:51 | HOSP ---
Subjective - Review of Symptoms General: Yes: Fatigue, Malaise Cardiovascular: Yes: Other Musculoskeletal: Yes: Joint Pain Physical Examination Vital Signs: Vital Signs Temperature 99.4 F 04/16/19 15:04 Pulse Rate 59 L 04/16/19 15:04 Respiratory Rate 18 04/16/19 15:04 Blood Pressure 144/75 04/16/19 15:04 O2 Sat by Pulse Oximetry (%) 97 04/16/19 09:00 Constitutional: Yes: Well Nourished, No Distress, Calm Eyes: Yes: WNL HENT: Yes: WNL Neck: Yes: WNL Cardiovascular: Yes: Regular Rate and Rhythm Respiratory: Yes: Regular, CTA Bilaterally Gastrointestinal: Yes: Normal Bowel Sounds Labs: CBC, BMP 04/16/19 05:30 04/16/19 05:30 Hospitalist Encounter Assessment: Patient is a 83-year-old woman with right intertrochanteric fracture status post fall, for OR today. stop heparin post op monitoring
[2019-04-16] MEDS ORDERED: ACETAMINOPHEN INJECTION 100 ML IVPB ONE (19:03)
[2019-04-16] MEDS ORDERED: ACETAMINOPHEN 1000 MG/100 ML VIAL (NON FORMULARY) IVPB ONE (19:30)
--- NOTE | 2019-04-16 19:34 | OP ---
DATE OF OPERATION: DATE OF DICTATION: 04/16/2019 PREOPERATIVE DIAGNOSIS: Right hip intertrochanteric fracture. POSTOPERATIVE DIAGNOSIS: Right hip intertrochanteric fracture. PROCEDURE: Right hip intramedullary nail. SURGEON: Rosas Lobato M.D. MEDICAL SALES ASSOCIATE: Lavern Solano, physician assistant spa manager, whose skillful assistance was necessary for the safe and timely performance of this procedure. Ms. Solano was able to provide limb positioning, retraction, assist in fracture reduction, as well as insertion of orthopedic fixation hardware. ANESTHESIA: General. POSTOPERATIVE CONDITION: Stable. COMPLICATIONS: None. BLOOD LOSS: 65 mL. IMPLANTS USED: Rashel gamma nail 125 degree with 95-mm proximal and 37.5-mm distal locking screws. INDICATION: This is a pleasant 83-year-old who suffered a trip and fall. She was found to have a displaced right intertrochanteric hip fracture. Treatment options were discussed including nonoperative care with prolonged bedrest and malunion versus operative care, which was highly recommended. Operative risks were reviewed in detail including bleeding, infection, neurovascular injury, need for further surgery, postoperative pain and stiffness, nonunion, malunion, hardware failure, or cutout. We discussed medical risks such as heart attack, stroke, DVT, PE and . I addressed the use of perioperative antibiotic and DVT prophylaxis. I addressed all the patient's questions and concerns. She voiced understanding, and elected to proceed. DESCRIPTION OF PROCEDURE: The patient was brought to the operating room where general anesthetic was administered. She was placed on the fracture table, careful to pad all bony prominences. The right lower extremity was then placed in a position of adduction, internal rotation, and traction. A preoperative fluoroscopy view demonstrated satisfactory reduction. Patient was now prepped and draped in the usual sterile fashion. A preoperative dose of antibiotics were given, and the usual timeout procedure was performed. An incision was now planned out proximal to the femur. This was carried down to skin and subcutaneous tissue. A guidewire was now inserted to the tip of the greater trochanter and advanced into the canal under guidance. The guidewire was now verified and positioned in 2 planes using fluoroscopy and is satisfactory. The guidewire was now overreamed down to the level of the lesser trochanter. The guidewire and reamer were now removed. A 125-degree nail was now chosen and inserted into the femoral canal. Now placement was confirmed fluoroscopically. A small incision was now made laterally, and a trocar was passed down to the level of the lateral femoral cortex. A guidewire was now advanced down the center of the femoral neck into the center of the femoral head. Guidewire placement was verified fluoroscopically in 2 planes. Guidewire was now measured, and a 95-mm screw was chosen. Reaming was then performed to a depth of 90 mm. The reamer was then removed. The screw was now inserted over the guidewire. Screw placement was verified fluoroscopically in 2 planes and was satisfactory. Set screw was now advanced all the way down. It was then backed off a quarter turn to allow compression. Set screw placement was verified by trying to back out the proximal lag screw. The proximal trocar was now removed. The distal trocar was now able to be inserted through the same incision as the previous one. This was also inserted down to the level of the cortex. The distal drill hole was now made, measured, and a 30.75-mm screw was chosen. The screw was now inserted and screw placement was verified fluoroscopically in 2 planes. The entire construct was now examined fluoroscopically. Both fracture reduction and hardware placement were satisfactory. The wounds were now copiously irrigated. The jig was removed. It should be noted the irrigation was done after the jig was removed. The deep tissue was approximated using 0 Vicryl. The subcutaneous tissue was approximated using 2-0 Vicryl. The skin was closed using 3-0 nylon. Sterile dressings were placed. The patient was extubated, transferred to recovery room in stable condition. Jewell [id number]
--- NOTE | 2019-04-16 19:43 | CONS ---
DATE OF CONSULTATION: DATE OF DICTATION: 04/16/2019 CHIEF COMPLAINT: Right hip pain. HISTORY OF PRESENT ILLNESS: This is an 83-year-old female who suffered a trip and fall in the wee hours of the morning around 9 or 10 o'clock at night when she slipped. She was then brought into the emergency department by ambulance. She was found to have a fracture. Orthopedic consultation was called. The patient does have history of diabetes, glaucoma, osteoporosis, bilateral knee replacement. She denies any loss of consciousness or dizziness. She has had 1 previous fall in the past month. She is a household and somewhat community ambulator utilizing a cane as well as a walker now. No other complaints at this time. PAST MEDICAL HISTORY: As above. PAST SURGICAL HISTORY: As above. FAMILY HISTORY: Noncontributory. SOCIAL HISTORY: Denies alcohol, tobacco, or drugs. ALLERGIES: No known drug allergies. MEDICATION: Medications include Azopt for her eyes. REVIEW OF SYSTEMS: Negative for fever, chills, nausea, vomiting, or night sweats. PHYSICAL EXAMINATION: General: This is an elderly female in no acute distress. She is seen lying in the hospital stretcher. She is alert and oriented x3. Extremities: Examination of the right lower extremity demonstrates shortening and external rotation. Her calves are soft and nontender. A distal neurovascular examination is intact to both lower extremities. Radiographs of the right hip are reviewed demonstrating displaced intertrochanteric hip fracture. Prior laboratory results are reviewed, and we reviewed a hemoglobin and hematocrit of 13 over 40, electrolytes demonstrate slight elevation in glucose. ASSESSMENT: Right intertrochanteric hip fracture. PLAN: I discussed today's findings with the patient. I advised that she has a displaced intertrochanteric hip fracture. I discussed that this is best treated operatively. We discussed the option of treating it nonsurgically with prolonged bedrest, leading to immobility, bed sores, pneumonia, DVT. Alternatively, we recommend operative care, which is carried out with intramedullary nail. I described the surgery in detail. I reviewed surgical risks including bleeding, infection, neurovascular injury, need for further surgery, postoperative pain and stiffness, nonunion, malunion, hardware failure and cutout. We discussed medical risks such as heart attack, stroke, DVT, PE and . I reviewed the postoperative rehabilitation protocol. We discussed the use of perioperative antibiotic and DVT prophylaxis. She voiced understanding, and elected to proceed. She was taken to the OR today. GHISLAINE STONER M.D. [id number]
[2019-04-16] MEDS ORDERED: FERROUS SO4 325 MG TABLET (FP) PO SCH (22:00)
[2019-04-16] MEDS ORDERED: CALCIUM 500MG/VIT-D 200 UNITS COMBO TABLET (FP) PO SCH (22:00)
[2019-04-16] MEDS: LACTATED RINGERS SOLUTION 1,000 ML IV SCH (22:02)
[2019-04-16] MEDS: CALCIUM 500MG/VIT-D 200 UNITS COMBO TABLET (FP) PO SCH (22:56)
[2019-04-17] MEDS ORDERED: DEXTROSE 5%-WATER - 50 ML IVPB ONE ×3 (01:57→16:46)
[2019-04-17] MEDS ORDERED: ceFAZolin SODIUM 1 GM VIAL ONE ×3 (01:57→16:46)
[2019-04-17] MEDS ORDERED: CEFAZOLIN 1 GM/D5W 1 GM/50 ML BAG IVPB SCH (02:00)
[2019-04-17] MEDS: CEFAZOLIN 1 GM in DEXTROSE 5%-WATER - 50 ML IVPB SCH ×3 (02:04→17:32)
[2019-04-17] MEDS: FERROUS SO4 325 MG TABLET (FP) PO SCH ×2 (07:45→17:31)
--- NOTE | 2019-04-17 08:26 | PN ---
Progress Note, Physician Chief Complaint: POD #1 Mild pain to operative hip History of Present Illness: 83 year old female with PMHx of DM, glaucoma, osteoporosis, and bilateral knee replacement in 2013, presenting to the ED due to a fall. Patient denies hitting her head or any LOC. She reports right hip pain since then but denies any weakness or numbness, headache, chest pain, shortness of breath, dizziness, vertigo, or other problems at this time. ER course was notable for: XRay of hip : intertrochanteric fracture - Current Medication List Current Medications: Active Medications Acetaminophen (Tylenol -) 650 mg PO Q6H PRN PRN Reason: FEVER Calcium Carbonate/Cholecalciferol (Os-Raudel 500+D -) 1 tab PO BID [facility] Last Admin: 04/16/19 22:56 Dose: 1 tab Enoxaparin Sodium (Lovenox -) 40 mg SQ DAILY [facility] Ferrous Sulfate (Feosol -) 325 mg PO BIDWM [facility] Last Admin: 04/17/19 07:45 Dose: 325 mg Cefazolin Sodium 1 gm/ (Dextrose) 50 mls @ 100 mls/hr IVPB Q8H-IV [facility] Stop: 04/18/19 01:59 Last Admin: 04/17/19 02:04 Dose: 100 mls/hr Lactated Ringer's (Lactated Ringers Solution) 1,000 mls @ 75 mls/hr IV ASDIR [facility] Last Admin: 04/16/19 22:02 Dose: 0 mls Ondansetron HCl (Zofran Injection) 4 mg IVPUSH Q6H PRN PRN Reason: NAUSEA AND/OR VOMITING - Objective Vital Signs: Vital Signs Temperature 98.8 F 04/17/19 06:00 Pulse Rate 72 04/17/19 06:00 Respiratory Rate 20 04/17/19 06:00 Blood Pressure 150/75 04/17/19 06:00 O2 Sat by Pulse Oximetry (%) 100 04/16/19 22:00 Constitutional: Yes: Well Nourished, No Distress, Calm Eyes: Yes: WNL, Conjunctiva Clear HENT: Yes: WNL, Atraumatic, Normocephalic Neck: Yes: WNL, Supple, Trachea Midline Cardiovascular: Yes: WNL, Regular Rate and Rhythm Respiratory: Yes: WNL, Regular, CTA Bilaterally Gastrointestinal: Yes: WNL, Normal Bowel Sounds ...Rectal Exam: Yes: Deferred Genitourinary: Yes: WNL Breast(s): Yes: WNL Musculoskeletal: Yes: Joint Stiffness Extremities: Yes: WNL Edema: No Peripheral Pulses WNL: Yes Peripheral Pulses: Left Radial: 2+, Right Radial: 2+, Left Doralis Pedis: 2+, Right Dorsalis Pedis: 2+, Left Femoral: 2+, Right Femoral: 2+ Integumentary: Yes: WNL Wound/Incision: Yes: Clean/Dry, Dressing Dry and Intact Neurological: Yes: WNL, Alert, Oriented ...Motor Strength: RLE (decreased duo) Labs: CBC, BMP 04/16/19 05:30 04/16/19 05:30 INR, PTT INR 1.10 (0.83-1.09) H 04/16/19 05:30 Problem List - Problems (1) Diabetes Assessment/Plan: diet controlled. BGM well controlled Code(s): E11.9 - TYPE 2 DIABETES MELLITUS WITHOUT COMPLICATIONS (2) Glaucoma Assessment/Plan: c/w azopt drops-NF will substitute Code(s): H40.9 - UNSPECIFIED GLAUCOMA (3) Age related osteoporosis Code(s): M81.0 - AGE-RELATED OSTEOPOROSIS W/O CURRENT PATHOLOGICAL FRACTURE (4) History of bilateral knee replacement Code(s): Z96.653 - PRESENCE OF ARTIFICIAL KNEE JOINT, BILATERAL (5) Prophylactic measure Assessment/Plan: FEN diabetic diet monitor electrolytes adequate PO intake DVT c/w lovenox Dispo maintain as inpatient-awaiting SNF/STR full code discharge planning Code(s): Z29.9 - ENCOUNTER FOR PROPHYLACTIC MEASURES, UNSPECIFIED (6) Hip fracture Assessment/Plan: S/P right IM nailing POD #1 surgical care as per Dr Lobato Team PT request placed for STR Code(s): S72.009A - FRACTURE OF UNSP PART OF NECK OF UNSP FEMUR, INIT Visit type - Emergency Visit Emergency Visit: Yes ED Registration Date: 04/16/19 Care time: The patient presented to the Emergency Department on the above date and was hospitalized for further evaluation of their emergent condition. - New Patient This patient is new to me today: Yes Date on this admission: 04/18/19 - Critical Care Critical Care patient: No - Discharge Referral Referred to [facility] Med P.C.: No
[2019-04-17] MEDS: CALCIUM 500MG/VIT-D 200 UNITS COMBO TABLET (FP) PO SCH ×2 (09:45→21:09)
[2019-04-17] MEDS: ACETAMINOPHEN 325 MG TABLET (FP) PO PRN (09:46)
[2019-04-17] MEDS: ENOXAPARIN NA (PORCINE) 40 MG/0.4 ML DISP.SYRIN SQ SCH (09:46)
[2019-04-17 11:04] LABS: BASO % 0.4 % (0-2.0); EOS % 0.2 % (0-4.5); HEMATOCRIT 33.3 % (32.4-45.2); HEMOGLOBIN 11.2 GM/dL (10.7-15.3); LYMPH % 16.2 % (8-40); MCH 29.3 pg (25.7-33.7); MCHC 33.6 g/dl (32.0-36.0); MEAN CELL VOLUME 87.1 fl (80-96); MEAN PLT VOLUME 11.1 fl (7.5-11.1); MONO % 6.1 % (3.8-10.2); NEUT % 77.1 % (42.8-82.8); PLATELET COUNT 195 K/MM3 (134-434); RBC 3.83 M/mm3 (3.60-5.2); RDW 14.5 % (11.6-15.6); WHITE BLOOD COUNT 10.2 K/mm3 (4.0-10.0)
[2019-04-17 11:37] LABS: BILIRUBIN,TOTAL 0.6 mg/dL (0.2-1); CALCIUM 8.5 mg/dL (8.5-10.1); CREATININE 0.9 mg/dL (0.55-1.3); POTASSIUM 3.8 mmol/L (3.5-5.1); TOT PROT 6.6 g/dl (6.4-8.2)
[2019-04-17] MEDS: LACTATED RINGERS SOLUTION 1,000 ML IV SCH (21:10)
[2019-04-17] MEDS: traMADol HCL 50 MG TABLET PO PRN (21:56)
[2019-04-18] MEDS: traMADol HCL 50 MG TABLET PO PRN ×3 (06:38→22:22)
[2019-04-18] MEDS: FERROUS SO4 325 MG TABLET (FP) PO SCH ×2 (08:14→17:58)
--- NOTE | 2019-04-18 08:33 | PN ---
Progress Note, Physician Chief Complaint: POD #2 Pain less today to operative hip History of Present Illness: 83 year old female with PMHx of DM, glaucoma, osteoporosis, and bilateral knee replacement in 2013, presenting to the ED due to a fall. Patient denies hitting her head or any LOC. She reports right hip pain since then but denies any weakness or numbness, headache, chest pain, shortness of breath, dizziness, vertigo, or other problems at this time. ER course was notable for: XRay of hip : intertrochanteric fracture - Current Medication List Current Medications: Active Medications Acetaminophen (Tylenol -) 650 mg PO Q6H PRN PRN Reason: FEVER Last Admin: 04/17/19 09:46 Dose: 650 mg Calcium Carbonate/Cholecalciferol (Os-Raudel 500+D -) 1 tab PO BID [facility] Last Admin: 04/17/19 21:09 Dose: 1 tab Enoxaparin Sodium (Lovenox -) 40 mg SQ DAILY [facility] Last Admin: 04/17/19 09:46 Dose: 40 mg Ferrous Sulfate (Feosol -) 325 mg PO BIDWM [facility] Last Admin: 04/18/19 08:14 Dose: 325 mg Lactated Ringer's (Lactated Ringers Solution) 1,000 mls @ 75 mls/hr IV ASDIR [facility] Last Admin: 04/17/19 21:10 Dose: Not Given Ondansetron HCl (Zofran Injection) 4 mg IVPUSH Q6H PRN PRN Reason: NAUSEA AND/OR VOMITING Tramadol HCl (Ultram -) 50 mg PO Q6H PRN PRN Reason: PAIN LEVEL 6-10 Last Admin: 04/18/19 06:38 Dose: 50 mg - Objective Vital Signs: Vital Signs Temperature 98.9 F 04/18/19 05:55 Pulse Rate 67 04/18/19 05:55 Respiratory Rate 20 04/18/19 05:55 Blood Pressure 119/62 04/18/19 05:55 O2 Sat by Pulse Oximetry (%) 95 04/17/19 21:00 Additional Findings/Remarks: Constitutional: Yes: Well Nourished, No Distress, Calm Eyes: Yes: WNL, Conjunctiva Clear HENT: Yes: WNL, Atraumatic, Normocephalic Neck: Yes: WNL, Supple, Trachea Midline Cardiovascular: Yes: WNL, Regular Rate and Rhythm Respiratory: Yes: WNL, Regular, CTA Bilaterally Gastrointestinal: Yes: WNL, Normal Bowel Sounds ...Rectal Exam: Yes: Deferred Genitourinary: Yes: WNL Breast(s): Yes: WNL Musculoskeletal: Yes: Joint Stiffness Extremities: Yes: WNL Edema: No Peripheral Pulses WNL: Yes Peripheral Pulses: Left Radial: 2+, Right Radial: 2+, Left Doralis Pedis: 2+, Right Dorsalis Pedis: 2+, Left Femoral: 2+, Right Femoral: 2+ Integumentary: Yes: WNL Wound/Incision: Yes: Clean/Dry, Dressing Dry and Intact Neurological: Yes: WNL, Alert, Oriented ...Motor Strength: RLE (decreased due to pain) Labs: CBC, BMP 04/17/19 10:00 04/17/19 10:00 INR, PTT INR 1.10 (0.83-1.09) H 04/16/19 05:30 Problem List - Problems (1) Diabetes Assessment/Plan: diet controlled. BGM well controlled Code(s): E11.9 - TYPE 2 DIABETES MELLITUS WITHOUT COMPLICATIONS (2) Glaucoma Assessment/Plan: c/w azopt drops-NF will substitute Code(s): H40.9 - UNSPECIFIED GLAUCOMA (3) Age related osteoporosis Code(s): M81.0 - AGE-RELATED OSTEOPOROSIS W/O CURRENT PATHOLOGICAL FRACTURE (4) History of bilateral knee replacement Code(s): Z96.653 - PRESENCE OF ARTIFICIAL KNEE JOINT, BILATERAL (5) Prophylactic measure Assessment/Plan: FEN diabetic diet monitor electrolytes adequate PO intake DVT c/w lovenox Dispo maintain as inpatient-awaiting SNF/STR full code discharge planning to [facility]-awaiting approval Code(s): Z29.9 - ENCOUNTER FOR PROPHYLACTIC MEASURES, UNSPECIFIED (6) Hip fracture Assessment/Plan: S/P right IM nailing POD #2 surgical care as per Dr Lobato Team PT request placed for STR Code(s): S72.009A - FRACTURE OF UNSP PART OF NECK OF UNSP FEMUR, INIT Visit type - Emergency Visit Emergency Visit: Yes ED Registration Date: 04/16/19 Care time: The patient presented to the Emergency Department on the above date and was hospitalized for further evaluation of their emergent condition. - New Patient This patient is new to me today: No - Critical Care Critical Care patient: No - Discharge Referral Referred to [facility] Med P.C.: No
[2019-04-18 09:21] LABS: HEMATOCRIT 31.5 % (32.4-45.2); HEMOGLOBIN 10.6 GM/dL (10.7-15.3); MCH 29.4 pg (25.7-33.7); MCHC 33.8 g/dl (32.0-36.0); MEAN CELL VOLUME 86.8 fl (80-96); MEAN PLT VOLUME 10.9 fl (7.5-11.1); PLATELET COUNT 193 K/MM3 (134-434); RBC 3.62 M/mm3 (3.60-5.2); RDW 14.3 % (11.6-15.6); WHITE BLOOD COUNT 9.2 K/mm3 (4.0-10.0)
[2019-04-18] MEDS: ENOXAPARIN NA (PORCINE) 40 MG/0.4 ML DISP.SYRIN SQ SCH (09:25)
[2019-04-18] MEDS: CALCIUM 500MG/VIT-D 200 UNITS COMBO TABLET (FP) PO SCH ×2 (09:25→22:17)
[2019-04-18] MEDS ORDERED: PATIENT'S OWN MEDICATION (NON-FORMULARY) (Brinzolamide [Azopt] 15 ML) OP SCH (14:00)
[2019-04-18] MEDS ORDERED: PT OWN MED DRAWER 7, Y5N ONE (14:19)
[2019-04-18] MEDS: DORZOLAMIDE 2% HCL OPHTHALMIC SOLUTION 10 ML BOTTLE OU SCH (17:57)
--- NOTE | 2019-04-18 18:08 | PN ---
Progress Note, Physician History of Present Illness: feels well. resting it bed. - Current Medication List Current Medications: Active Medications Acetaminophen (Tylenol -) 650 mg PO Q6H PRN PRN Reason: FEVER Last Admin: 04/17/19 09:46 Dose: 650 mg Calcium Carbonate/Cholecalciferol (Os-Raudel 500+D -) 1 tab PO BID [facility] Last Admin: 04/18/19 09:25 Dose: 1 tab Dorzolamide HCl (Trusopt 2%) 1 drop OU DAILY [facility] Last Admin: 04/18/19 17:57 Dose: 1 drop Enoxaparin Sodium (Lovenox -) 40 mg SQ DAILY [facility] Last Admin: 04/18/19 09:25 Dose: 40 mg Ferrous Sulfate (Feosol -) 325 mg PO BIDWM [facility] Last Admin: 04/18/19 17:58 Dose: 325 mg Lactated Ringer's (Lactated Ringers Solution) 1,000 mls @ 75 mls/hr IV ASDIR [facility] Last Admin: 04/17/19 21:10 Dose: Not Given Ondansetron HCl (Zofran Injection) 4 mg IVPUSH Q6H PRN PRN Reason: NAUSEA AND/OR VOMITING Tramadol HCl (Ultram -) 50 mg PO Q6H PRN PRN Reason: PAIN LEVEL 6-10 Last Admin: 04/18/19 12:18 Dose: 50 mg - Objective Vital Signs: Vital Signs Temperature 99.2 F 04/18/19 09:52 Pulse Rate 70 04/18/19 09:52 Respiratory Rate 16 04/18/19 09:52 Blood Pressure 121/55 L 04/18/19 09:52 O2 Sat by Pulse Oximetry (%) 98 04/18/19 09:00 Genitourinary: Yes: Polyuria (dressing CDI. compartments soft. mild pain with motion of the hip. nvid) Musculoskeletal: Yes: Other (dressing) Edema: LUE: Trace Labs: CBC, BMP 04/18/19 08:15 04/17/19 10:00 INR, PTT INR 1.10 (0.83-1.09) H 04/16/19 05:30 Assessment/Plan #pod 1 s/p right hip orif PT WBAT pain control dvt phophalxis dispo planning
--- NOTE | 2019-04-18 18:20 | PN ---
Progress Note (short form) - Note Progress Note: Pt lying comf in bed. Pain well controlled. Vital Signs - 24 hr 04/17/19 04/17/19 04/17/19 19:41 19:55 21:00 Temperature 98.9 F Pulse Rate 70 Respiratory 20 20 Rate Blood Pressure 147/71 O2 Sat by Pulse 95 95 Oximetry (%) 04/17/19 04/18/19 04/18/19 21:18 05:55 09:00 Temperature 98.7 F 98.9 F 99.6 F Pulse Rate 109 H 67 70 Respiratory 20 20 20 Rate Blood Pressure 109/50 L 119/62 130/51 L O2 Sat by Pulse 98 Oximetry (%) 04/18/19 09:52 Temperature 99.2 F Pulse Rate 70 Respiratory 16 Rate Blood Pressure 121/55 L O2 Sat by Pulse Oximetry (%) RLE dressings cdi calves soft nt ehl fhl ta g s 5/5 sens int to lt 2+ dp Laboratory Results - last 24 hr 04/17/19 04/18/19 04/18/19 20:39 06:38 08:15 WBC 9.2 RBC 3.62 Hgb 10.6 L Hct 31.5 L MCV 86.8 MCH 29.4 MCHC 33.8 RDW 14.3 Plt Count 193 MPV 10.9 POC Glucometer 167 114 04/18/19 04/18/19 11:33 16:20 WBC RBC Hgb Hct MCV MCH MCHC RDW Plt Count MPV POC Glucometer 113 124 a: pod 2 R hip IM nail -pain ctl -dvt proph (4 weeks post op LMWH) -oob/PT -stable for dc to rehab
[2019-04-18] MEDS: SENNOSIDES 8.6MG TABLET (FP) PO SCH (22:17)
[2019-04-18] MEDS: DOCUSATE SODIUM 100 MG CAPSULE (FP) PO SCH (22:17)
[2019-04-19] MEDS: DOCUSATE SODIUM 100 MG CAPSULE (FP) PO SCH ×3 (05:56→21:54)
[2019-04-19] MEDS: traMADol HCL 50 MG TABLET PO PRN (06:43)
[2019-04-19] MEDS: FERROUS SO4 325 MG TABLET (FP) PO SCH ×2 (08:05→17:40)
[2019-04-19] MEDS: DORZOLAMIDE 2% HCL OPHTHALMIC SOLUTION 10 ML BOTTLE OU SCH (09:17)
[2019-04-19] MEDS: CALCIUM 500MG/VIT-D 200 UNITS COMBO TABLET (FP) PO SCH ×2 (09:18→21:54)
[2019-04-19] MEDS: SENNOSIDES 8.6MG TABLET (FP) PO SCH ×2 (09:18→21:54)
[2019-04-19] MEDS: ENOXAPARIN NA (PORCINE) 40 MG/0.4 ML DISP.SYRIN SQ SCH (09:18)
[2019-04-19 10:28] LABS: HEMATOCRIT 31.7 % (32.4-45.2); HEMOGLOBIN 10.6 GM/dL (10.7-15.3); MCH 29.3 pg (25.7-33.7); MCHC 33.6 g/dl (32.0-36.0); MEAN CELL VOLUME 87.2 fl (80-96); MEAN PLT VOLUME 10.7 fl (7.5-11.1); PLATELET COUNT 209 K/MM3 (134-434); RBC 3.63 M/mm3 (3.60-5.2); RDW 14.6 % (11.6-15.6); WHITE BLOOD COUNT 9.3 K/mm3 (4.0-10.0)
[2019-04-19] MEDS ORDERED: BISACODYL 5 MG TABLET.DR (FP) PO ONE (12:03)
[2019-04-19] MEDS: LIDOCAINE 5% TOPICAL PATCH TP SCH (12:22)
[2019-04-19] MEDS: POLYETHYLENE GLYCOL 3350 119 GM BTL PO SCH (12:23)
--- NOTE | 2019-04-19 15:58 | PN ---
Physical Exam: SUBJECTIVE: Patient seen and examined,encouraged her to participate in PT OBJECTIVE: 83 year old female with PMHx of DM, glaucoma, osteoporosis, and bilateral knee replacement in 2013, presenting to the ED due to a fall. Patient denies hitting her head or any LOC. She reports right hip pain since then but denies any weakness or numbness, headache, chest pain, shortness of breath, dizziness, vertigo, or other problems at this time. ER course was notable for: XRay of hip : intertrochanteric fracture patient for discharge to [place] for rehab tomorrow, cleared for d/c Vital Signs Period Temp Pulse Resp BP Sys/Farmer Pulse Ox Last 24 Hr 98.4 F-99.1 F 62-68 16-20 112-135/61-67 96-96 GENERAL: The patient is awake, alert, and fully oriented, in no acute distress. HEAD: Normal with no signs of trauma. EYES: PERRL, extraocular movements intact, sclera anicteric, conjunctiva clear. No ptosis. ENT: Ears normal, nares patent, oropharynx clear without exudates, moist mucous membranes. NECK: Trachea midline, full range of motion, supple. HEART: Regular rate and rhythm ABDOMEN: Soft, nontender, nondistended, normoactive bowel sounds, no guarding, no rebound, no hepatosplenomegaly, no masses. EXTREMITIES: s/p right hip repair pod #3 NEUROLOGICAL: Normal speech, for PT PSYCH: Normal mood, normal affect. SKIN: Warm, dry, normal turgor, no rashes or lesions noted Laboratory Results - last 24 hr 04/18/19 04/18/19 04/19/19 16:20 21:03 05:36 WBC RBC Hgb Hct MCV MCH MCHC RDW Plt Count MPV POC Glucometer 124 139 108 04/19/19 04/19/19 09:40 11:27 WBC 9.3 RBC 3.63 Hgb 10.6 L Hct 31.7 L MCV 87.2 MCH 29.3 MCHC 33.6 RDW 14.6 Plt Count 209 MPV 10.7 POC Glucometer 135 Active Medications Generic Name Dose Route Start Last Admin Trade Name Freq PRN Reason Stop Dose Admin Acetaminophen 650 mg 04/16/19 20:37 04/17/19 09:46 Tylenol - PO 650 mg Q6H PRN Administration FEVER Calcium Carbonate/Cholecalciferol 1 tab 04/16/19 22:00 04/19/19 09:18 Os-Raudel 500+D - PO 1 tab BID [facility] Administration Docusate Sodium 100 mg 04/18/19 22:00 04/19/19 14:32 Colace - PO 100 mg TID [facility] Administration Dorzolamide HCl 1 drop 04/18/19 14:00 04/19/19 09:17 Trusopt 2% OU 1 drop DAILY [facility] Administration Enoxaparin Sodium 40 mg 04/17/19 10:00 04/19/19 09:18 Lovenox - SQ 40 mg DAILY [facility] Administration Ferrous Sulfate 325 mg 04/16/19 08:00 04/19/19 08:05 Feosol - PO 325 mg BIDWM [facility] Administration Lactated Ringer's 1,000 mls @ 75 mls/hr 04/16/19 20:37 04/17/19 21:10 Lactated Ringers Solution IV Not Given ASDIR [facility] Lidocaine 1 patch 04/19/19 12:15 04/19/19 12:22 Lidoderm Patch - TP 1 patch DAILY [facility] Administration Miscellaneous 1 each 04/19/19 22:00 Lidoderm Patch Removal MC DAILY@2200 [facility] Ondansetron HCl 4 mg 04/16/19 20:37 Zofran Injection IVPUSH Q6H PRN NAUSEA AND/OR VOMITING Polyethylene Glycol 17 gm 04/19/19 12:15 04/19/19 12:23 Miralax (For Daily Use) - PO 17 gm DAILY [facility] Administration Senna 1 tab 04/18/19 22:00 04/19/19 09:18 Senna - PO 1 tab BID [facility] Administration Tramadol HCl 50 mg 04/17/19 21:14 04/19/19 06:43 Ultram - PO 50 mg Q6H PRN Administration PAIN LEVEL 6-10 ASSESSMENT/PLAN: Problem List - Problems (1) Hip fracture Assessment/Plan: S/P right IM nailing POD #3 surgical care as per Dr Lobato Team PT request placed for STR cleared by ortho for d/c Code(s): S72.009A - FRACTURE OF UNSP PART OF NECK OF UNSP FEMUR, INIT (2) Diabetes Assessment/Plan: diet controlled Code(s): E11.9 - TYPE 2 DIABETES MELLITUS WITHOUT COMPLICATIONS (3) Prophylactic measure Assessment/Plan: physical therapy Code(s): Z29.9 - ENCOUNTER FOR PROPHYLACTIC MEASURES, UNSPECIFIED Visit type - Emergency Visit Emergency Visit: Yes ED Registration Date: 04/16/19 Care time: The patient presented to the Emergency Department on the above date and was hospitalized for further evaluation of their emergent condition. - New Patient This patient is new to me today: Yes Date on this admission: 04/19/19 - Critical Care Critical Care patient: No - Discharge Referral Referred to [facility] Med P.C.: No
[2019-04-19] MEDS: LACTATED RINGERS SOLUTION 1,000 ML IV SCH (20:51)
[2019-04-19] MEDS: ACETAMINOPHEN 325 MG TABLET (FP) PO PRN (21:56)
[2019-04-19] MEDS ORDERED: LIDOCAINE PATCH REMOVAL MC SCH (22:00)
[2019-04-20] MEDS: traMADol HCL 50 MG TABLET PO PRN (05:38)
[2019-04-20] MEDS: DOCUSATE SODIUM 100 MG CAPSULE (FP) PO SCH (05:38)
--- NOTE | 2019-04-20 08:49 | DS ---
Physical Exam: SUBJECTIVE: Patient seen and examined at the bedside. feels well, tolerating diet, no chills or malaise. OBJECTIVE: low grade temp 100.1 w/o chills or malaise. encourged to use incentive spriometer every hour no signs of sepsis and patient can be discharged tor rehab left wrist pain after three needle stick attempts yesterday. ice applied with relief. states she has hx of arthritis 83 year old female with PMHx of DM, glaucoma, osteoporosis, and bilateral knee replacement in 2013, presenting to the ED due to a fall. Patient denies hitting her head or any LOC. She reports right hip pain since then but denies any weakness or numbness, headache, chest pain, shortness of breath, dizziness, vertigo, or other problems at this time. XRay of hip : intertrochanteric fracture. she is now POD #3 right hip IM nail with Dr Lobato. -pain ctl -dvt proph (4 weeks post op LMWH) -oob/PT -stable for dc to rehab Vital Signs Period Temp Pulse Resp BP Sys/Farmer Pulse Ox Last 24 Hr 98.4 F-100.1 F 63-73 20-20 112-132/57-68 96 PHYSICAL EXAM GENERAL: The patient is awake, alert, and fully oriented, in no acute distress. HEAD: Normal with no signs of trauma. EYES: PERRL, extraocular movements intact, sclera anicteric, conjunctiva clear. ENT: Ears normal, nares patent, oropharynx clear without exudates, moist mucous membranes. NECK: Trachea midline, full range of motion, supple. LUNGS: Breath sounds equal, clear to auscultation bilaterally, no wheezes, no crackles, no accessory muscle use. HEART: Regular rate and rhythm, S1, S2 without murmur, rub or gallop. ABDOMEN: Soft, nontender, nondistended, normoactive bowel sounds, no guarding, no rebound, no hepatosplenomegaly, no masses. EXTREMITIES: 2+ pulses, warm, well-perfused, no edema. NEUROLOGICAL: Cranial nerves II through XII grossly intact. Normal speech, gait not observed. PSYCH: Normal mood, normal affect. SKIN: Warm, dry, normal turgor, no rashes or lesions noted. LABS Laboratory Results - last 24 hr 04/19/19 04/19/1904/19/19 09:40 11:27 17:13 WBC 9.3 RBC 3.63 Hgb 10.6 L Hct 31.7 L MCV 87.2 MCH 29.3 MCHC 33.6 RDW 14.6 Plt Count 209 MPV 10.7 POC Glucometer 135 148 04/19/19 04/20/19 22:21 06:21 WBC RBC Hgb Hct MCV MCH MCHC RDW Plt Count MPV POC Glucometer 151 138 HOSPITAL COURSE: Date of Admission:04/16/19 Date of Discharge: 04/20/19 Minutes to complete discharge: 45 Discharge Summary Problems reviewed: Yes Reason For Visit: FRACTURE OF HIP,FALL Current Active Problems Age related osteoporosis (Acute) Diabetes (Acute) Glaucoma (Acute) Hip fracture (Acute) History of bilateral knee replacement (Acute) Prophylactic measure (Acute) Condition: Stable - Instructions Diet, Activity, Other Instructions: Mrs Jovel. You will be discharged to rehab today. Please continue Lovenox for a total of 4 weeks post surgery for prevention of blood clots. Please continue all of the other medications on your discharge packet Referrals: Manolo Ulloa [Primary Care Provider] - Disposition: [facility] FACILITY - Home Medications Comprehensive Discharge Medication List: Ambulatory Orders Brinzolamide [Azopt] 15 ml OP DAILY 03/01/19 Acetaminophen [Tylenol .Regular Strength -] 650 mg PO Q6H PRN tablet 04/20/19 Calcium 500Mg/Vit-D 200 Units [Os-Raudel 500+D -] 1 tab PO BID tab 04/20/19 Docusate Sodium [Colace -] 100 mg PO TID capsule 04/20/19 Dorzolamide HCl [Trusopt 2% -] 1 drop OU DAILY drops 04/20/19 Enoxaparin [Lovenox -] 40 mg SQ DAILY disp.syrin 04/20/19 Ferrous Sulfate [Feosol] 325 mg PO BIDWM ud 04/20/19 Lidocaine 5% Patch [Lidoderm -] 1 patch TP DAILY patch 04/20/19 Lidocaine Patch Removal [Lidoderm Patch Removal] 1 each MC DAILY@2200 each Polyethylene Glycol 3350 [Miralax 119 gm Btl -] 17 gm PO DAILY bottle 04/20/19 Sennosides [Senna -] 1 tab PO BID tablet 04/20/19 Problem List - Problems (1) Hip fracture Assessment/Plan: S/P right IM nailing surgical care as per Dr Lobato Team PT request placed for STR cleared by ortho for d/c Lovenox 40mg x 4 weeks prophylaxis Code(s): S72.009A - FRACTURE OF UNSP PART OF NECK OF UNSP FEMUR, INIT (2) Diabetes Assessment/Plan: diet controlled Code(s): E11.9 - TYPE 2 DIABETES MELLITUS WITHOUT COMPLICATIONS (3) Prophylactic measure Assessment/Plan: physical therapy Code(s): Z29.9 - ENCOUNTER FOR PROPHYLACTIC MEASURES, UNSPECIFIED This patient is new to me today: No Emergency Visit: Yes ED Registration Date: 04/16/19 Care time: The patient presented to the Emergency Department on the above date and was hospitalized for further evaluation of their emergent condition. Critical Care patient: No - Discharge Referral Referred to [facility] Med P.C.: No
[2019-04-20] MEDS: SENNOSIDES 8.6MG TABLET (FP) PO SCH (09:15)
[2019-04-20] MEDS: LIDOCAINE 5% TOPICAL PATCH TP SCH (09:15)
[2019-04-20] MEDS: FERROUS SO4 325 MG TABLET (FP) PO SCH ×2 (09:15→09:16)
[2019-04-20] MEDS: ENOXAPARIN NA (PORCINE) 40 MG/0.4 ML DISP.SYRIN SQ SCH (09:15)
[2019-04-20] MEDS: CALCIUM 500MG/VIT-D 200 UNITS COMBO TABLET (FP) PO SCH (09:15)
[2019-04-20] MEDS: DORZOLAMIDE 2% HCL OPHTHALMIC SOLUTION 10 ML BOTTLE OU SCH (09:17)
[2019-04-20] MEDS: POLYETHYLENE GLYCOL 3350 119 GM BTL PO SCH (12:26)
[2019-04-20 18:50] VITALS: BP 128/63; PULSE 67; TEMP 99.3
== END 2019-04-20 13:28 | DRG 482 ==
LOC: JER 23:34 → JERBED 04-16 03:09 → J7W 04-16 08:23 → JSAMEDAYSX 04-16 18:12 → J6S 04-16 22:22
PROVIDERS: ADMIT Internal Medicine; ATTEND Nurse Practitioner Family
PROC: 0QS606Z Reposition Right Upper Femur with Intramedullary Internal Fixation Device, Open Approach (ICD-10-PCS; principal; 2019-04-16 17:30)
DX: S72.141A Displaced intertrochanteric fracture of right femur, initial encounter for closed fracture (principal); E11.9 Type 2 diabetes mellitus without complications; M81.0 Age-related osteoporosis without current pathological fracture; H40.9 Unspecified glaucoma; D72.829 Elevated white blood cell count, unspecified; W19.XXXA Unspecified fall, initial encounter; Y93.9 Activity, unspecified; Y92.89 Other specified places as the place of occurrence of the external cause
CPT/HCPCS: 36415; 70450-TC; 71045-TC-FY; 72125-TC; 73523-TC-FY; 73552-TC-RT-FY; 73560-TC-RT-FY; 76000-TC-FY; 80053; 81003; 82962; 83735; 84100; 85025; 85027; 85610; 85730; 86850; 86900; 86901; 87086; 93005; 93010; 94760; 97116-GP; 97162-GP; 99284-25; J0131; J1644; J7030

== ENCOUNTER 2019-04-26 21:33 | Emergency (ER) | payer OTHER, BC ==
[2019-04-26 22:06] VITALS: BMI 27.4
--- NOTE | 2019-04-26 22:06 | PDOC ---
Attending Attestation - Resident Resident Name: Wally Villareal - ED Attending Attestation I have performed the following: I have examined & evaluated the patient, The case was reviewed & discussed with the resident, I agree w/resident's findings & plan - HPI HPI: 04/26/19 22:41 Pt comes with a hall catheter in place and now with suprapubic abd pain. Urinating around the hall catheter here. Pt is afebrile and no other complaints. - Physicial Exam PE: 04/27/19 00:53 Pt has suprapubic pain. She is afebrile. Pt has no other complaints Agree with resident exam - Medical Decision Making 04/27/19 00:53 Pt has a large UTI and we will admit for IV treatment. Pt has an elevated WBC, and normal chemistry 04/27/19 00:56 Pt will be sent back to the MD with bactrim DS
[2019-04-26 22:27] VITALS: TEMP 98.5
--- NOTE | 2019-04-26 22:40 | PDOC ---
History of Present Illness <Rachel Johnson - Last Filed: 04/27/19 00:55> - General History Source: Patient Exam Limitations: No Limitations - History of Present Illness Initial Comments: 04/26/19 22:31 83 yo female pmh DM and recent R hip replacement presents to the ED from [facility] for 1 day of suprapubic abdominal pain. Pt states the pain is only present when her bladder is full and during urination however, it resolves when finished urinating. Pain is described as severe, suprapubic without radiation. R hip incision not red, hot or drainage present. Pt has hall catheter in place, states that the nursing sstaff replaced the catheter 2 times in case it was the cause of the pain, it did not resolve her pain. Denies F/C/N/ V, CP, SOB, back pain, or changes in bowel habits. Denies foul urine oder. Pt also states there was an episode of urination onto her bed while the catheter was in place (of note, urine is present in the catheter tubing). <Wally Villareal - Last Filed: 04/27/19 01:23> - General Chief Complaint: Pain, Acute Stated Complaint: ABDOMINAL PAIN Time Seen by Provider: 04/26/19 21:56 Past History <Rachel Johnson - Last Filed: 04/27/19 00:55> - Past Medical History Anemia: No Asthma: No Cancer: No Cardiac Disorders: No CVA: No COPD: No CHF: No Dementia: No Diabetes: Yes GI Disorders: No Disorders: No HTN: Yes Hypercholesterolemia: No Liver Disease: No Seizures: No Thyroid Disease: No - Surgical History Abdominal Surgery: No Appendectomy: No Cardiac Surgery: No Cholecystectomy: No Lung Surgery: No Neurologic Surgery: No - Psycho Social/Smoking Cessation Hx Smoking History: Never smoked Have you smoked in the past 12 months: No Information on smoking cessation initiated: No Hx Alcohol Use: No Drug/Substance Use Hx: No <Wally Villareal - Last Filed: 04/27/19 01:23> - Past Medical History Allergies/Adverse Reactions: Allergies Allergy/AdvReac Type Severity Reaction Status Date / Time No Known Allergies Allergy Verified 04/26/19 22:06 Home Medications: Ambulatory Orders Brinzolamide [Azopt] 15 ml OP DAILY 03/01/19 Acetaminophen [Tylenol .Regular Strength -] 650 mg PO Q6H PRN tablet 04/20/19 Calcium 500Mg/Vit-D 200 Units [Os-Raudel 500+D -] 1 tab PO BID tab 04/20/19 Docusate Sodium [Colace -] 100 mg PO TID capsule 04/20/19 Dorzolamide HCl [Trusopt 2% -] 1 drop OU DAILY drops 04/20/19 Enoxaparin [Lovenox -] 40 mg SQ DAILY disp.syrin 04/20/19 Ferrous Sulfate [Feosol] 325 mg PO BIDWM ud 04/20/19 Lidocaine 5% Patch [Lidoderm -] 1 patch TP DAILY patch 04/20/19 Lidocaine Patch Removal [Lidoderm Patch Removal] 1 each MC DAILY@2200 each Polyethylene Glycol 3350 [Miralax 119 gm Btl -] 17 gm PO DAILY bottle 04/20/19 Sennosides [Senna -] 1 tab PO BID tablet 04/20/19 Sulfamethoxazole/Trimethoprim [Bactrim Ds -] 1 tab PO BID #14 tablet 04/27/19 Sulfamethoxazole/Trimethoprim [Bactrim Ds -] 1 tab PO BID #14 tablet 04/27/19 Review of Systems - Review of Systems Constitutional: No: Chills, Fever Respiratory: No: Shortness of Breath Cardiac (ROS): No: Chest Pain, Edema ABD/GI: No: Constipated, Diarrhea, Nausea, Vomiting : Yes: Other (suprapubic abdominal pain). No: Burning, Dysuria, Frequency, Flank Pain Musculoskeletal: No: Back Pain Neurological: No: Headache, Numbness, Paresthesia, Weakness <Wally Villareal - Last Filed: 04/27/19 01:23> *Physical Exam - Vital Signs Last Vital Signs Temp Pulse Resp BP Pulse Ox 98.5 F 71 20 128/64 98 04/26/19 22:27 04/26/19 22:02 04/26/19 22:02 04/26/19 22:02 04/26/19 22:02 <Rachel Johnson - Last Filed: 04/27/19 00:55> - Vital Signs Last Vital Signs Temp Pulse Resp BP Pulse Ox 98.5 F 71 20 128/64 98 04/26/19 22:27 04/26/19 22:02 04/26/19 22:02 04/26/19 22:02 04/26/19 22:02 - Physical Exam General Appearance: Yes: Nourished, Appropriately Dressed. No: Apparent Distress HEENT: positive: EOMI Neck: positive: Supple. negative: Carotid bruit Respiratory/Chest: positive: Lungs Clear, Normal Breath Sounds. negative: Respiratory Distress, Accessory Muscle Use, Crackles, Rales, Rhonchi, Stridor, Wheezing Cardiovascular: positive: Regular Rhythm, Regular Rate, S1, S2. negative: Edema , JVD, Murmur Vascular Pulses: Dorsalis-Pedis (R): 4+, Doralis-Pedis (L): 4+ Gastrointestinal/Abdominal: positive: Flat, Soft, Other (suprapubic abdominal pain). negative: Pulsatile Mass, Protuberent, Distended, Guarding, Rebound, Tenderness Musculoskeletal: negative: CVA Tenderness Extremity: positive: Normal Capillary Refill, Normal Inspection, Normal Range of Motion Integumentary: positive: Normal Color, Dry, Warm Neurologic: positive: Fully Oriented, Alert, Normal Mood/Affect, Normal Response <Wally Villareal - Last Filed: 04/27/19 01:23> ED Treatment Course - LABORATORY CBC & Chemistry Diagram: 04/26/19 23:50 04/26/19 23:50 - ADDITIONAL ORDERS Additional order review: Laboratory Results 04/26/19 04/26/19 23:50 23:00 Sodium 139 Potassium 4.0 Chloride 104 Carbon Dioxide 28 Anion Gap 6 L BUN 17.5 Creatinine 1.0 Est GFR (CKD-EPI)AfAm 59.91 Est GFR (CKD-EPI)NonAf 51.69 Random Glucose 103 Calcium 9.3 Total Bilirubin 0.5 AST 23 ALT 17 Alkaline Phosphatase 132 H Total Protein 7.0 Albumin 2.7 L Urine Color Yellow Urine Appearance Turbid Urine pH 6.5 Ur Specific [place] 1.014 Urine Protein 1+ H Urine Glucose (UA) Negative Urine Ketones Negative Urine Blood 2+ H Urine Nitrite Positive H Urine Bilirubin Negative Urine Urobilinogen 1.0 Ur Leukocyte Esterase 3+ H Urine WBC (Auto) 690 Urine RBC (Auto) 23 Urine Casts (Auto) 15 U Epithel Cells (Auto) 1.2 Urine Bacteria (Auto) 6726.0 04/26/19 23:50 RBC 3.68 MCV 87.7 MCHC 34.2 RDW 14.4 MPV 8.3 D Neutrophils % 69.5 Lymphocytes % 21.7 D Monocytes % 6.2 Eosinophils % 1.8 D Basophils % 0.8 - Medications Given in the ED: ED Medications Discontinued Medications Generic Name Dose Route Start Last Admin Trade Name Reggie PRN Reason Stop Dose Admin Ceftriaxone Sodium 1 gm/ 50 mls @ 200 mls/hr 04/26/19 23:26 04/27/19 00:11 Dextrose IVPB 04/26/19 23:40 200 mls/hr ONCE ONE Administration Protocol <Rachel Johnson - Last Filed: 04/27/19 00:55> - LABORATORY CBC & Chemistry Diagram: 04/26/19 23:50 04/26/19 23:50 <Wally Villareal - Last Filed: 04/27/19 01:23> Medical Decision Making - Medical Decision Making 04/26/19 22:48 83 yo female pmh DM and recent R hip replacement presents to the ED from [facility] for 1 day of suprapubic abdominal pain. Pt states the pain is only present when her bladder is full and during urination however, it resolves when finished urinating. Pain is described as severe, suprapubic without radiation. R hip incision not red, hot or drainage present. Pt has hall catheter in place, states that the nursing sstaff replaced the catheter 2 times in case it was the cause of the pain, it did not resolve her pain. Denies F/C/N/ V, CP, SOB, back pain, or changes in bowel habits. Denies foul urine odor. Pt also states there was an episode of urination onto her bed while the catheter was in place (of note, urine is present in the catheter tubing). rectal temp 98 and vitals WNL DDX INLT: UTI, cystitis, urethritis will replace hall, do UA and culture and reassess 04/27/19 00:39 UA shows positive 3+ leuks and 690 WBC. WIll treat with IV ceftriaxone While attempting to put hall in, advancing catheter through the urethra caused excessive pain. Multiple attempts made and catheter in place 04/27/19 01:08 Pt has not tried outpt antibiotics. Will send back to rehab with Bactrim 7 days. Cultures should be followed up and pt should be treated appropriately when resulted Pt safe to return to Rehab <Wally Villareal - Last Filed: 04/27/19 01:23> Discharge <Rachel Johnson - Last Filed: 04/27/19 00:55> - Discharge Information Problems reviewed: Yes - Admission No <Wally Villareal - Last Filed: 04/27/19 01:23> - Discharge Information Clinical Impression/Diagnosis: UTI (urinary tract infection) Condition: Stable Disposition: HOME - Additional Discharge Information Prescriptions: Sulfamethoxazole/Trimethoprim [Bactrim Ds -] 1 tab PO BID #14 tablet Sulfamethoxazole/Trimethoprim [Bactrim Ds -] 1 tab PO BID #14 tablet - Follow up/Referral Referrals: Manolo Ulloa [Primary Care Provider] - Todd Andrade MD [Staff Physician] - - Patient Discharge Instructions Patient Printed Discharge Instructions: DI for Urinary Tract Infection (UTI) Additional Instructions: Please take the Antibiotic Bactrim 2 times a day for the next 7 days for your urinary Tract Infection. Culture results are pending and antibiotics can be adjusted when the culture results. See the Urologist referred to you. Return to the ER for new or concerning symptoms including but not limited to: high fevers , inability to eat or drink. Thank you - Post Discharge Activity
[2019-04-26 23:18] LABS: EPI CELLS 1.2 /HPF (0-5/HPF); HYALINE CASTS 15 /lpf (0-8); PH,URINE 6.5 (5.0-8.0); URINE APPEARANCE TURBID; URINE BILIRUBIN NEGATIVE (NEGATIVE); URINE COLOR YELLOW; URINE GLUCOSE (UA) NEGATIVE (NEGATIVE); URINE KETONE NEGATIVE (NEGATIVE); URINE LEUK ESTERASE 3+ (NEGATIVE); URINE NITRITE POSITIVE (NEGATIVE); URINE PROTEIN 1+ (NEGATIVE); URINE RBC 23 /hpf (0-4); URINE WBC 690 /hpf (0-5)
[2019-04-26] MEDS ORDERED: CEFTRIAXONE 1 GM in DEXTROSE 5%-WATER - 50 ML IVPB ONE (23:26)
[2019-04-26] MEDS ORDERED: CEFTRIAXONE 1 GM/50 ML BAG ONE (23:47)
[2019-04-26 23:57] LABS: BASO % 0.8 % (0-2.0); EOS % 1.8 % (0-4.5); HEMATOCRIT 32.3 % (32.4-45.2); LYMPH % 21.7 % (8-40); MCHC 34.2 g/dl (32.0-36.0); MEAN CELL VOLUME 87.7 fl (80-96); MEAN PLT VOLUME 8.3 fl (7.5-11.1); MONO % 6.2 % (3.8-10.2); NEUT % 69.5 % (42.8-82.8); PLATELET COUNT 498 K/MM3 (134-434); RBC 3.68 M/mm3 (3.60-5.2); RDW 14.4 % (11.6-15.6); WHITE BLOOD COUNT 11.6 K/mm3 (4.0-10.0)
[2019-04-27 00:34] LABS: ALBUMIN 2.7 g/dl (3.4-5.0); BILIRUBIN,TOTAL 0.5 mg/dL (0.2-1); BLOOD UREA NITROGEN 17.5 mg/dL (7-18); CALCIUM 9.3 mg/dL (8.5-10.1)
[2019-04-27 03:28] VITALS: BP 125/67; PULSE 73
== END 2019-04-27 03:19 | disposition home or self-care (01) ==
LOC: JER 21:33
DX: N39.0 Urinary tract infection, site not specified (principal); E11.9 Type 2 diabetes mellitus without complications; Z96.641 Presence of right artificial hip joint; I10 Essential (primary) hypertension
CPT/HCPCS: 36415; 80053; 81003; 85025; 87086; 87186; 99283-25

== ENCOUNTER 2021-12-07 00:44 | Emergency (ER) | payer OTHER ==
[2021-12-07 00:50] VITALS: BMI 30.9
[2021-12-07] MEDS ORDERED: SODIUM CHLORIDE 0.9% 500 ML INFUS.BAG IV ONE (01:43)
[2021-12-07 02:50] LABS: BASO % 0.9 % (0-2.0); EOS % 0.1 % (0-4.5); HEMATOCRIT 35.5 % (32.4-45.2); LYMPH % 29.5 % (8-40); MCH 28.9 pg (25.7-33.7); MCHC 33.8 g/dl (32.0-36.0); MEAN CELL VOLUME 85.7 fl (80-96); MEAN PLT VOLUME 10.3 fl (7.5-11.1); MONO % 11.4 % (3.8-10.2); NEUT % 58.1 % (42.8-82.8); PLATELET COUNT 183 10^3/uL (134-434); RBC 4.15 M/mm3 (3.60-5.2); RDW 14.6 % (11.6-15.6)
[2021-12-07 02:53] LABS: URINE APPEARANCE CLEAR; URINE BILIRUBIN NEGATIVE (NEGATIVE); URINE COLOR YELLOW; URINE GLUCOSE (UA) NEGATIVE (NEGATIVE); URINE KETONE NEGATIVE (NEGATIVE); URINE LEUK ESTERASE NEGATIVE (NEGATIVE); URINE NITRITE NEGATIVE (NEGATIVE); URINE PROTEIN NEGATIVE (NEGATIVE); URINE UROBILINOGEN 0.2 mg/dL (0.2-1.0)
[2021-12-07 03:17] LABS: ALBUMIN 3.8 g/dl (3.4-5.0); CALCIUM 8.9 mg/dL (8.5-10.1); MAGNESIUM 2.1 mg/dL (1.8-2.4)
[2021-12-07 03:18] LABS: BLOOD UREA NITROGEN 9.8 mg/dL (7-18)
[2021-12-07 03:21] LABS: BILIRUBIN,TOTAL 0.4 mg/dL (0.2-1); TOT PROT 7.9 g/dl (6.4-8.2)
[2021-12-07] MEDS ORDERED: BEBTELOVIMAB (EUA) 175 MG/2 ML VIAL IVPUSH ONE (05:24)
[2021-12-07] MEDS ORDERED: ACETAMINOPHEN 325 MG TABLET (FP) PO ONE (07:03)
[2021-12-07] MEDS ORDERED: ACETAMINOPHEN 325 MG TABLET (FP) ONE (07:20)
[2021-12-07 08:18] VITALS: BP 112/62; PULSE 64; TEMP 99.8
== END 2021-12-07 08:46 | disposition home or self-care (01) ==
LOC: JER 00:44
DX: U07.1 COVID-19 (principal)
CPT/HCPCS: 36415; 71045-TC-FY; 80053; 81003; 83735; 84484; 85025; 87086; 93005; 93010; 99285-25; C9803-CS; M0222; Q0222; U0003; U0005

== ENCOUNTER 2023-09-30 14:19 | Inpatient (IN) | payer OTHER, BC ==
[2023-09-30 14:31] VITALS: RESP 18
[2023-09-30] MEDS ORDERED: ACETAMINOPHEN 500 MG TABLET (FP) ONE (16:28)
[2023-09-30] MEDS: ACETAMINOPHEN 500 MG TABLET (FP) PO ONE (16:43)
[2023-09-30 18:38] LABS: BASO % 0.8 % (0-2.0); EOS % 0.4 % (0-4.5); HEMATOCRIT 35.4 % (32.4-45.2); HEMOGLOBIN 11.7 GM/dL (10.7-15.3); LYMPH % 18.9 % (8-40); MCH 29.3 pg (25.7-33.7); MEAN CELL VOLUME 88.6 fl (80-96); MEAN PLT VOLUME 10.7 fl (7.5-11.1); MONO % 7.8 % (3.8-10.2); NEUT % 72.1 % (42.8-82.8); PLATELET COUNT 182 10^3/uL (134-434); RDW 14.7 % (11.6-15.6); WHITE BLOOD COUNT 8.8 K/mm3 (4.0-10.0)
[2023-09-30 18:57] LABS: POTASSIUM 3.9 mmol/L (3.5-5.1)
[2023-09-30 18:59] LABS: CALCIUM 9.4 mg/dL (8.5-10.1)
[2023-09-30 19:00] LABS: ALBUMIN 3.6 g/dl (3.4-5.0); BLOOD UREA NITROGEN 13.5 mg/dL (7-18)
[2023-09-30 19:03] LABS: CREATININE 0.9 mg/dL (0.55-1.3)
[2023-09-30 19:04] LABS: BILIRUBIN,TOTAL 0.5 mg/dL (0.2-1)
[2023-09-30 19:05] LABS: TOT PROT 7.4 g/dl (6.4-8.2)
[2023-09-30] MEDS ORDERED: ceFAZolin SODIUM 1 GM VIAL ONE (19:32)
[2023-09-30] MEDS: CEFAZOLIN 1 GM in DEXTROSE 5%-WATER - 50 ML IVPB ONE (20:44)
[2023-10-01] MEDS: CEFAZOLIN 1 GM in DEXTROSE 5%-WATER - 50 ML IVPB SCH (01:53)
[2023-10-01] MEDS: ACETAMINOPHEN 1000 MG/100 ML BAG IVPB PRN (01:55)
[2023-10-01 03:16] VITALS: BMI 23.9
[2023-10-01 09:19] LABS: BASO % 0.9 % (0-2.0); EOS % 1.3 % (0-4.5); HEMATOCRIT 34.1 % (32.4-45.2); HEMOGLOBIN 11.2 GM/dL (10.7-15.3); LYMPH % 35.1 % (8-40); MCH 29.1 pg (25.7-33.7); MCHC 32.8 g/dl (32.0-36.0); MEAN CELL VOLUME 88.9 fl (80-96); MEAN PLT VOLUME 11.2 fl (7.5-11.1); MONO % 9.1 % (3.8-10.2); NEUT % 53.6 % (42.8-82.8); PLATELET COUNT 159 10^3/uL (134-434); RBC 3.84 M/mm3 (3.60-5.2); RDW 14.9 % (11.6-15.6); WHITE BLOOD COUNT 6.8 K/mm3 (4.0-10.0)
[2023-10-01 09:40] LABS: POTASSIUM 3.7 mmol/L (3.5-5.1)
[2023-10-01 09:52] LABS: BLOOD UREA NITROGEN 13.9 mg/dL (7-18); PHOSPHOROUS 3.8 mg/dL (2.5-4.9)
[2023-10-01 09:54] LABS: BILIRUBIN,TOTAL 0.4 mg/dL (0.2-1); TOT PROT 6.3 g/dl (6.4-8.2)
[2023-10-01 09:55] LABS: ALBUMIN 3.2 g/dl (3.4-5.0); CALCIUM 8.6 mg/dL (8.5-10.1); CREATININE 0.9 mg/dL (0.55-1.3); MAGNESIUM 2.1 mg/dL (1.8-2.4)
[2023-10-01] MEDS ORDERED: ACETAMINOPHEN WITH CODEINE 300MG/30MG TABLET PO PRN (13:11)
[2023-10-01] MEDS: predniSONE 10 MG TABLET (UD) PO SCH (13:39)
[2023-10-01] MEDS: FAMOTIDINE 20 MG TABLET PO SCH (13:39)
[2023-10-02] MEDS: predniSONE 10 MG TABLET (UD) PO SCH (10:37)
[2023-10-02 11:04] LABS: BASO % 0.4 % (0-2.0); EOS % 0.3 % (0-4.5); HEMATOCRIT 35.2 % (32.4-45.2); HEMOGLOBIN 11.8 GM/dL (10.7-15.3); LYMPH % 18.9 % (8-40); MCH 29.6 pg (25.7-33.7); MCHC 33.6 g/dl (32.0-36.0); MEAN CELL VOLUME 87.9 fl (80-96); MEAN PLT VOLUME 10.7 fl (7.5-11.1); NEUT % 73.4 % (42.8-82.8); PLATELET COUNT 205 10^3/uL (134-434); RBC 4.01 M/mm3 (3.60-5.2); RDW 14.7 % (11.6-15.6); WHITE BLOOD COUNT 8.7 K/mm3 (4.0-10.0)
[2023-10-02 11:22] LABS: POTASSIUM 4.1 mmol/L (3.5-5.1)
[2023-10-02 11:24] LABS: BLOOD UREA NITROGEN 13.2 mg/dL (7-18); CALCIUM 9.2 mg/dL (8.5-10.1)
[2023-10-02 11:25] LABS: ALBUMIN 3.2 g/dl (3.4-5.0)
[2023-10-02 11:29] LABS: BILIRUBIN,TOTAL 0.3 mg/dL (0.2-1); TOT PROT 6.9 g/dl (6.4-8.2)
[2023-10-02] MEDS: CEPHALEXIN MONOHYDRATE 500 MG CAPSULE (UD) PO SCH (13:44)
[2023-10-02 14:59] VITALS: BP 128/62; PULSE 56; TEMP 98.2
== END 2023-10-02 18:04 | disposition home or self-care (01) | DRG 558 ==
LOC: JER 14:19 → JERBED 18:08 → J8W 21:33
PROVIDERS: ADMIT Internal Medicine; ATTEND Internal Medicine
DX: M77.8 Other enthesopathies, not elsewhere classified (principal); E11.9 Type 2 diabetes mellitus without complications; I10 Essential (primary) hypertension; H40.9 Unspecified glaucoma; M81.0 Age-related osteoporosis without current pathological fracture; Z96.653 Presence of artificial knee joint, bilateral; Z96.641 Presence of right artificial hip joint
CPT/HCPCS: 36415; 73110-TC-RT-FY; 73130-TC-RT-FY; 80053; 83735; 84100; 84550; 85025; 86140; 87040; 93005; 93010; 99285-25; J0131